=== PATIENT | male | born 1995 | race Two or more races ===

== ENCOUNTER 2024-05-14 11:16 | Inpatient (IN) | payer MEDICAID, OTHER ==
[~2024-05-14] VITALS: Ht 188 cm; Wt 89.0 kg
--- NOTE | 2024-05-14 11:34 | ED.PDOC ---
HPI (NEURO) HPI Comments 29 y.o male with PMHx of seizures, presents to the ED for an evaluation of seizure like activity today. Patient reports dad witnessed a seizure today. Dad is not currently present upon assessment to describe seizure, location or additional information. Patient is unable to recall event, states he had one last week and was seen at this facility. Patient states " I feel like I am going to have another seizure right now". Patient is on Keppra and has been compliant with taking it daily. Upcoming neurologist appointment on 05/16/24. Patient denies any pain or symptoms at this time. He admits to the use of marijuana and occasional alcohol intake. Chief Complaint: Seizure Time Seen by MD: 11:27 Primary Care Provider: Unsure Reviewed Notes: Nurses Notes, Medications, Allergies Information Source: Patient Mode of Arrival: Ambulatory Severity: Moderate Timing: Hours Duration: Since onset Seizure Location: Generalized Onset: At rest Symptoms: None Before: Normal During: LOC After: Normal Mentation History of: Seizure Disorder Modifying factors: Nothing Associated Signs and Symptoms: None Past Medical History PAST MEDICAL HISTORY: Seizures Surgical History: Denies all surgeries Family History Family History: Unknown Social History Smoker: Non-Smoker Alcohol: Occasionally Drugs: Marijuana Lives In: Home Constitutional: denies: chills, diaphoresis, fatigue, fever, malaise, sweats, weakness, others EENTM: denies: blurred vision, double vision, ear bleeding, ear discharge, ear drainage, ear pain, ear ringing, eye pain, eye redness, hearing loss, mouth pain, mouth swelling, nasal discharge, nose bleeding, nose congestion, nose pain, photophobia, tearing, throat pain, throat swelling, voice changes, others Respiratory: denies: cough, hemoptysis, orthopnea, SOB at rest, shortness of breath, SOB with excertion, stridor, wheezing, others Cardiovascular: denies: chest pain, dizzy spells, diaphoresis, Dyspnea on exertion, edema, irregular heart beat, left arm pain, lightheadedness, palpitations, PND, syncope, others Gastrointestinal: denies: abdomen distended, abdominal pain, blood streaked bowels, constipated, diarrhea, dysphagia, difficulty swallowing, hematemesis, melena, nausea, poor appetite, poor fluid intake, rectal bleeding, rectal pain, vomiting, others Genitourinary: denies: burning, dysuria, flank pain, frequency, hematuria, incontinence, penile discharge, penile sore, pain, testicle pain, testicle swelling, urgency, others Neurological: reports: seizure; denies: dizziness, fainting, headache, left sided numbness, left sided weakness, numbness, paresthesia, pre-existing deficit, right sided numbness, right sided weakness, speech problems, tingling, tremors, weakness, others Musculoskeletal: denies: back pain, gout, joint pain, joint swelling, muscle pain, muscle stiffness, neck pain, others Integumetry: denies: bruises, change in color, change in hair/nails, dryness, laceration, lesions, lumps, rash, wounds, others Allergic/Immunocompromised: denies: Difficulty Healing, Frequent Infections, Hives, Itching, others Hematologic/Lymphatic: denies: anemia, blood clots, easy bleeding, easy bruising, swollen glands, others Endocrine: denies: excessive hunger, excessive sweating, excessive thirst, excessive urination, flushing, intolerance to cold, intolerance to heat, unex plained weight gain, unexplained weight loss, others Psychiatric: denies: anxiety, bipolar disorder, depression, hopeless, panic disorder, schizophrenia, sleepless, suicidal, others All Other Systems: Reviewed and Negative Physical Exam General Appearance: Moderate Distress HEENT: Normal ENT Inspection, Pharynx Normal, TMs Normal Neck: Full Range of Motion, Non-Tender, Normal, Normal Inspection Respiratory: Chest Non-Tender, Lungs Clear, No Accessory Muscle Use, No Respiratory Distress, Normal Breath Sounds Cardiovascular: No Edema, No JVD, No Murmur, No Gallop, Normal Peripheral Pulses, Regular Rate/Rhythm Breast Exam: Deferred Gastrointestinal: No Organomegaly, Non Tender, No Pulsatile Mass, Normal Bowel Sounds, Soft Genitalia: Deferred Pelvic: Deferred Rectal: Deferred Extremities: No calf tenderness, Normal capillary refill, Normal inspection, Normal range of motion, Non-tender, No pedal edema Musculoskeletal : Apperance: Normal Neurologic: Disoriented Cerebellar Function: NOT DONE Reflexes: NOT DONE Skin: Dry, Normal Color, Warm Peripheral Pulses: 3+ Radial (R), 3+ Radial (L) Lymphatic: No Adenopathy Was a procedure done? Was a procedure done?: No Differential Diagnosis (SZ) Seizure: Psychogenic Seizure, Closed Head Injury, Syncope, Encephalopathy, Epilepsy-Break Through, Epilepsy-Status X-Ray, Labs, Meds, VS Vital Signs Date Time Temp Pulse Resp B/P (MAP) Pulse Ox O2 Delivery O2 Flow Rate FiO2 05/14/24 11:22 98.9 107 18 136/84 (101) 99 Lab Test 05/14/24 11:30 Range/Units White Blood Count Pending Red Blood Count Pending Hemoglobin Pending Hematocrit Pending Mean Corpuscular Volume Pending Mean Corpuscular Hemoglobin Pending Mean Corpuscular Hemoglobin Concent Pending Red Cell Distribution Width Pending Platelet Count Pending Mean Platelet Volume Pending Neutrophils (%) (Auto) Pending Lymphocytes (%) (Auto) Pending Monocytes (%) (Auto) Pending Basophils (%) (Auto) Pending Neutrophils # (Auto) Pending Lymphocytes # (Auto) Pending Monocytes # (Auto) Pending Sodium Level Pending Potassium Level Pending Chloride Level Pending Carbon Dioxide Level Pending Anion Gap Pending Blood Urea Nitrogen Pending Creatinine Pending Glomerular Filtration Rate Calc Pending BUN/Creatinine Ratio Pending Serum Glucose Pending Calcium Level Pending Patient slightly confused. History of seizure. Vitals stable. Answering all questions. Witnessed by father. Reviewed his previous visit. He is taking his Keppra. No physical injury. Explained to the patient. Time of 1ST Reevaluation: 11:30 Reevaluation 1ST: Unchanged Patient Education/Counseling: Diagnosis, Treatment, Prognosis Family Education/Counseling: No Family Present Departure 1 Departure Time of Disposition: 12:00 Impression: Primary Impression: Seizure Disposition: ADMITTED INPATIENT Admit to: Med Surg Condition: Guarded Critical Care Note Critical Care Time?: Yes (45 min-critical care time only) Stability Stability form required: No I personally scribed for JOLENE LOPEZ MD ([email or web address]) on 05/14/24 at 11:34. Electronically submitted by Shelly Cheney ([facility]). JOLENE LOPEZ MD May 14, 2024 11:34
[2024-05-14 12:04] LABS: Basophils # (auto) 0 10 ^3/uL (0-0.2); Basophils % (auto) 0.5 % (0.0-2.0); Eosinophils # (auto) 0 10 ^3/uL (0-0.8); Eosinophils % (auto) 0.8 % (0.0-7.0); Hematocrit 44.2 % (41.0-53.0); Hemoglobin 14.9 g/dL (13.5-17.5); Lymphocytes # (auto) 1.2 10 ^3/uL (0.4-5.4); Lymphocytes % (auto) 19.4 % (10.0-50.0); Mean Corpuscular Hemoglobin 32.6 pg (28.0-32.0); Mean Corpuscular Hgb Conc. 33.6 g/dL (32.0-36.0); Mean Corpuscular Volume 97.1 fL (80.0-100.0); Monocytes # (auto) 0.6 10 ^3/uL (0-1.3); Monocytes % (auto) 9.1 % (0.0-12.0); Neutrophils # (auto) 4.4 10 ^3/uL (1.6-8.6); Neutrophils % (auto) 70.2 % (37.0-80.0); Platelet Count (auto) 200 10^3/uL (140-450); Red Blood Cells 4.55 10^6/uL (4.5-5.90); Red Cell Distribution Width 13.5 % (11.8-14.3); White Blood Cell 6.2 10^3/uL (4.4-10.8)
[2024-05-14 12:13] LABS: Chloride 108 mmol/L (98-107); Potassium 4.2 mmol/L (3.5-5.1); Sodium 140 mmol/L (136-145)
[2024-05-14 12:14] LABS: Anion Gap 6 (5-15); Carbon Dioxide 26 mmol/L (20-31)
[2024-05-14 12:15] LABS: Calcium 9.4 mg/dL (8.7-10.4)
[2024-05-14 12:19] LABS: Glucose 108 mg/dL (74-106)
[2024-05-14 12:20] LABS: BUN/Creatinine Ratio 9.2 (10.0-20.0); Blood Urea Nitrogen 11 mg/dL (9-23)
[2024-05-14 16:11] VITALS: PULSE 64; RESP 16; O2SAT 100
[2024-05-14 19:21] VITALS: PULSE 70; RESP 15; O2SAT 97
[2024-05-14] MEDS ORDERED: LEVE500T3 PO (19:27)
[2024-05-14] MEDS ORDERED: ONDANSETRON HCL 4 MG/2 ML VIAL IV PRN (19:30)
[2024-05-14] MEDS ORDERED: NITROGLYCERIN 0.4 MG SL TAB SL PRN (19:30)
[2024-05-14] MEDS ORDERED: DOCUSATE SOD 100 MG CAP PO PRN (19:30)
[2024-05-14] MEDS ORDERED: MORPHINE SULFATE INJ 2 MG/ml SYRG IV PRN (19:30)
[2024-05-14] MEDS ORDERED: ACETAMINOPHEN 325 MG TAB PO PRN (19:30)
--- NOTE | 2024-05-14 19:35 | DVHHP2 ---
History of Present Illness Reason for Visit: Seizure History of Present Illness Guzman Lowry is a 29-year-old male with past medical history of seizures, who came in due to having a seizure at home. Patient states that he missed a dose of his seizure medication yesterday, and when he misses a dose he has seizures. He states that he was visiting his dad and had a seizure while at his house. He states he can feel when they are going to happen and that he felt like it was going to happen again so he had his dad bring him to the hospital. 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 Past Surgical History: None Family History: None Smoke: No ALCOHOL: rare Drugs: Marijuana Lives: Homeless Domestic Violence: Neg Review of Systems Constitutional: No: Fever, Chills, Sweats, Weakness, Malaise, Other Eyes: No: Pain, Vision change, Conjunctivae inflammation, Eyelid inflammation, Other, Redness ENT: No: Ear pain, Ear discharge, Nose pain, Nose discharge, Nose congestion, Mouth pain, Mouth swelling, Throat pain, Throat swelling, Other Respiratory: No: Cough, Dry, Shortness of breath, SOB with excertion, Wheezing, Hemoptysis, Pleuritic Pain, Sputum, Wheezing, Other Cardiovascular: No: Chest Pain, Palpitations, Orthopnea, Paroxysmal Noc. Dyspnea, Edema, Lt Headedness, Other Gastrointestinal: No: Nausea, Vomiting, Abdominal Pain, Diarrhea, Constipation, Melena, Hematochezia, Other Genitourinary: No Dysuria, No Frequency, No Incontinence, No Hematuria, No Retention, No Other Musculoskeletal: No: other, neck pain, shoulder pain, arm pain, back pain, hand pain, leg pain, foot pain Skin: No: Rash, Lesions, Jaundice, Bruising, Other Neurological: Seizures; No: Weakness, Numbness, Incoordination, Change in speech, Confusion, Other Allergies: Coded Allergies: NO KNOWN ALLERGIES (Unverified , 05/14/24) Exam Vital Signs Vital Signs Date Time Temp Pulse Resp B/P (MAP) Pulse Ox O2 Delivery O2 Flow Rate FiO2 05/14/24 18:15 69 18 124/75 (91) 98 05/14/24 16:11 Room Air* 0 21 05/14/24 14:22 98.8 98.8 General Appearance: Alert, Oriented X3, Cooperative, mild distress HEENT: Atraumatic, PERRLA Respiratory: Clear to auscultation, Normal air movement Cardiovascular: Regular rate, Normal S1, Normal S2, No murmurs Abdominal: Normal bowel sounds, Soft, No tenderness Extremities: No clubbing, No cyanosis, No edema, Normal pulses Skin: No rashes, No breakdown, No significant lesion Neuro: Normal gait, Normal speech, Strength at 5/5 X4 ext Psych/Mental Status: Mental status NL, Mood NL Labs/Xrays Labs Test 05/14/24 11:30 Range/Units White Blood Count 6.2 4.4-10.8 10^3/uL Red Blood Count 4.55 4.5-5.90 10^6/uL Hemoglobin 14.9 13.5-17.5 g/dL Hematocrit 44.2 41.0-53.0 % Mean Corpuscular Volume 97.1 80.0-100.0 fL Mean Corpuscular Hemoglobin 32.6 H 28.0-32.0 pg Mean Corpuscular Hemoglobin Concent 33.6 32.0-36.0 g/dL Red Cell Distribution Width 13.5 11.8-14.3 % Platelet Count 200 140-450 10^3/uL Mean Platelet Volume 8.0 6.9-10.8 fL Neutrophils (%) (Auto) 70.2 37.0-80.0 % Lymphocytes (%) (Auto) 19.4 10.0-50.0 % Monocytes (%) (Auto) 9.1 0.0-12.0 % Eosinophils (%) (Auto) 0.8 0.0-7.0 % Basophils (%) (Auto) 0.5 0.0-2.0 % Neutrophils # (Auto) 4.4 1.6-8.6 10 ^3/uL Lymphocytes # (Auto) 1.2 0.4-5.4 10 ^3/uL Monocytes # (Auto) 0.6 0-1.3 10 ^3/uL Eosinophils # (Auto) 0 0-0.8 10 ^3/uL Basophils # (Auto) 0 0-0.2 10 ^3/uL Nucleated Red Blood Cells 0.0 % Sodium Level 140 136-145 mmol/L Potassium Level 4.2 3.5-5.1 mmol/L Chloride Level 108 H 98-107 mmol/L Carbon Dioxide Level 26 20-31 mmol/L Anion Gap 6 5-15 Blood Urea Nitrogen 11 9-23 mg/dL Creatinine 1.20 0.700-1.30 mg/dL Glomerular Filtration Rate Calc 85 >90 mL/min BUN/Creatinine Ratio 9.2 L 10.0-20.0 Serum Glucose 108 H 74-106 mg/dL Calcium Level 9.4 8.7-10.4 mg/dL Assessment/Plan Assessment/Plan Assessment: Seizure, Plan: Admit to Tele, IV seizure medications, Continue home seizure medication, IV hydration, Seizure precautions, Social service consult, Consider neurology consult if patient continues to have seizures, PRN Ativan for seizures, Plan discussed with: Patient My Orders Orders - ANUPAM GILLIS Procedure Category Date Status Time Levetiracetam Ivpb PHA 05/14/24 Transmitted Keppra 19:30 Admit ADMIT 05/14/24 Transmitted 19:26 Code Status CODE 05/14/24 Transmitted 19:26 Hydrocodone-Acet [facility] 05/14/24 Transmitted 5/325mg Tab ([place] 19:30 Ondansetron Hcl [facility] 05/14/24 Transmitted (Zofran) 19:30 Docusate Sodium [facility] 05/14/24 Transmitted Capsule (Colace 19:30 Complete Blood Count LAB 05/15/24 Verified 04:00 Comprehensive LAB 05/15/24 Verified Metabolic Panel 04:00 Condition: Serious [facility] 05/14/24 Transmitted 19:26 Acetaminophen Tablet [facility] 05/14/24 Transmitted (Tylenol Tablet) 19:30 Nitroglycerin [facility] 05/14/24 Transmitted Sublingual (Ntrostat 19:30 Morphine Sulfate [facility] 05/14/24 Transmitted Injection 19:30 Stat Ekg For Chest [facility] 05/14/24 Transmitted Pain 19:26 Notify Md Of Changes [facility] 05/14/24 Transmitted From Base 19:26 Centrifugal Chiller Technician For [facility] 05/14/24 Transmitted 24 Hours 19:26 Emergency Dysrhythmia [facility] 05/14/24 Transmitted Protocol 19:26 Rhythm Strips Once [facility] 05/14/24 Transmitted Every Shift 19:26 Oxygen By Nasal RT 05/14/24 Transmitted Cannula 19:26 Seizure Precautions [facility] 05/14/[address] 19:26 Levetiracetam Tablet [facility] 05/14/24 Transmitted (Keppra Tablet) 22:00 Date of Service: May 14, 2024 Billing Provider: ANUPAM GILLIS Common Visit Codes: [id number] INP/OBS CARE (MOD) ANUPAM GILLIS May 14, 2024 19:35
[2024-05-14] MEDS: levETIRAcetam 500 mg/100ml 100 ML IV ONE (19:38)
[2024-05-14] MEDS: SODIUM CHLORIDE 0.9% 1,000 ML IV ONE (19:38)
[2024-05-14] MEDS ORDERED: LORazepam 2MG/ML-1ML VIAL IV PRN (19:45)
[2024-05-14] MEDS: HYDROcodone-ACET 5/325MG TAB PO PRN (19:47)
[2024-05-14 21:40] VITALS: BP 119/71; PULSE 68; RESP 16; TEMP 98.1; O2SAT 98
[2024-05-14] MEDS: levETIRAcetam 500 MG TAB PO SCH (22:07)
[2024-05-15] VITALS (8 sets, daily range): BP systolic 92–127; BP diastolic 56–84; PULSE 60–94; RESP 16–18; TEMP 97.4–99.4; O2SAT 92–99
[2024-05-15 06:17] LABS: Basophils # (auto) 0 10 ^3/uL (0-0.2); Basophils % (auto) 0.3 % (0.0-2.0); Eosinophils # (auto) 0.1 10 ^3/uL (0-0.8); Eosinophils % (auto) 1.7 % (0.0-7.0); Hematocrit 40.9 % (41.0-53.0); Hemoglobin 13.9 g/dL (13.5-17.5); Lymphocytes # (auto) 1.9 10 ^3/uL (0.4-5.4); Lymphocytes % (auto) 28.9 % (10.0-50.0); Mean Corpuscular Hemoglobin 33.3 pg (28.0-32.0); Monocytes # (auto) 0.5 10 ^3/uL (0-1.3); Monocytes % (auto) 7.6 % (0.0-12.0); Neutrophils % (auto) 61.5 % (37.0-80.0); Nucleated Red Blood Cells % 0.1 %; Platelet Count (auto) 186 10^3/uL (140-450); Red Blood Cells 4.18 10^6/uL (4.5-5.90); Red Cell Distribution Width 13.5 % (11.8-14.3); White Blood Cell 6.5 10^3/uL (4.4-10.8)
[2024-05-15 06:39] LABS: Alanine Aminotransferase 16 U/L (7-40); Albumin 3.8 g/dL (3.2-4.8); Alkaline Phosphatase 32 U/L (46-116); Anion Gap 8 (5-15); Aspartate Aminotransferase 13 U/L (13-40); BUN/Creatinine Ratio 7.5 (10.0-20.0); Bilirubin, Total 0.3 mg/dL (0.2-1.0); Blood Urea Nitrogen 9 mg/dL (9-23); Calcium 9.1 mg/dL (8.7-10.4); Carbon Dioxide 26 mmol/L (20-31); Chloride 108 mmol/L (98-107); Glucose 111 mg/dL (74-106); Potassium 3.8 mmol/L (3.5-5.1); Sodium 142 mmol/L (136-145); Total Protein 5.5 g/dL (5.7-8.2)
[2024-05-15] MEDS: INFLUENZA TRIVALENT 2024-2025 0.5 ML INJ IM ONE (09:52)
[2024-05-15 13:33] LABS: Urine Bacteria None Seen /hpf (None Seen)
[2024-05-15 13:47] LABS: Urine Blood Negative /uL (Negative); Urine Clarity Clear (Clear); Urine Color Straw (Yellow); Urine Protein, UAD Negative (Negative); Urine Urobilinogen Normal (Negative); Urine WBC <1 /hpf (0 - 3); Urine pH 7.5 (5.0-9.0)
[2024-05-15 13:52] LABS: Amphetamine Screen, Urine Neg (NEGATIVE); Barbiturate Scree,Urine Neg (NEGATIVE); Benzodiazephine Screen, Urine Neg (NEGATIVE)
[2024-05-15 13:53] LABS: Cannabinoid Screen, Urine Pos (NEGATIVE); Cocaine Screen, Urine Neg (NEGATIVE); Opiate Scree,Urine Neg (NEGATIVE); Phencyclidine Screen, Urine Neg (NEGATIVE)
--- NOTE | 2024-05-15 15:36 | DVHPNRES ---
Progress Note Date Seen: May 15, 2024 Resident Creating Document: SHIRA CHUNG RESIDENT Medical Necessity Reason Pt with a Central, PICC or Fol: No Subjective Review of Systems Patient is a 29-year-old male with past medical history of seizure diagnosed in 2021, who came in after experiencing a pre-seizure aura. According to the patient, on Thursday morning 05/14/2024, he started feeling lightheaded, confused with an unsteady gait, patient notes this is the aura he feels usually before he experiences a seizure. Shortly afterwards, patient had his father bring him to the hospital. Per patient, he does not remember having a seizure, only remembers having the aura that prompted this visit to the hospital. Patient notes that he missed his seizure medication on Thursday night 05/13/2024. He reports having his last seizure on 05/08/2024. Patient also notes that previously she used to live in [facility] and he has recently moved to the [facility] area where his father lives. Past surgical history: Denies Home medications: Keppra 500 mg b.i.d. Past Hospitalization: In April 2024 for similar symptoms Social & Personal history: Patient is currently living with his father, however, does not want to return to living with him. Patient is currently unemployed. Denies using tobacco, drinks alcohol occasionally, last drink was on 05/12/2024 x2 beers. Uses marijuana twice a week. Denies using any other drugs Allergies: Denies Patient seen and examined at bedside. Patient is alert and oriented to time, place person and responding to all questions. General: Reports feeling fatigued and fevers Eyes: No Pain, No Vision change, No Conjunctivae inflammation, No Eyelid inflammation, No Other, No Redness ENT: No Ear pain, No Ear discharge, No Nose pain, No Nose discharge, No Nose congestion, No Mouth pain, No Mouth swelling, No Throat pain, No Throat swelling, No Other Cardiovascular: No Chest Pain, No Palpitations, No Orthopnea, No Paroxysmal No Dyspnea, No Edema, No Lt Headedness, No Other Respiratory: No Cough, No Dry, No Shortness of breath, SOB with exertion, No Wheezing, No Hemoptysis, No Pleuritic Pain, No Sputum, No Other Gastrointestinal: No Nausea, No Vomiting, No Abdominal Pain, No Diarrhea, No Constipation, No Melena, No Hematochezia, No Other Genitourinary: No Dysuria, No Frequency, No Incontinence, No Hematuria, No Retention, No Other Musculoskeletal: No other, No neck pain, No shoulder pain, No arm pain, No back pain, No hand pain, No leg pain, No foot pain Skin: No Rash, No Lesions, No Jaundice, No Bruising, No Other Psychiatric: Reports feeling more depressed and anxious than usual in the past 2 weeks, has had suicidal ideation, but no plan. Objective vital signs Vital Sign Date Time Temp Pulse Resp B/P (MAP) Pulse Ox O2 Delivery O2 Flow Rate FiO2 05/15/24 13:00 98.9 72 16 127/84 (98) 98 98.9 05/15/24 08:00 Room Air* 0 21 Total Intake and Output 05/14/24 05/14/24 05/15/24 15:00 23:00 07:00 Intake Total 100 ml 600 ml Balance 100 ml 600 ml medications Current Medications Medications Dose Ordered Sig/Annamaria Route Start Time Stop Time Status Last Admin Dose Admin Acetaminophen/ Hydrocodone Bitart 1 tab Q4HP PRN PO 05/14/24 19:30 05/14/24 19:47 1 TAB Ondansetron HCl 4 mg Q4HP PRN IV 05/14/24 19:30 Docusate Sodium 100 mg BIDPRN PRN PO 05/14/24 19:30 Acetaminophen 650 mg Q6HP PRN PO 05/14/24 19:30 Nitroglycerin 0.4 mg Q5MINP PRN SL 05/14/24 19:30 Morphine Sulfate 2 mg Q30M PRN IV 05/14/24 19:30 Levetiracetam 750 mg BID PO 05/14/24 22:00 05/15/24 09:50 750 MG Lorazepam 1 mg Q5MINP PRN IV 05/14/24 19:45 Examination General Appearance: Cooperative. Well developed. Well nourished. NAD Head Exam: Normal inspection Neck Exam: Normal inspection. Non-tender. Normal alignment Pulmonary/Respiratory: Chest non-tender. Clear bilateral breath sounds, no crackles, no wheezing. Cardiovascular/Chest: Regular rate and rhythm. No murmurs. No JVD. Peripheral Pulses: 2+ Radial (R). 2+ Radial (L). 2+ Pedal (R). 2+ Pedal (L) Abdominal Exam: Normal bowel sounds. Soft. normal abdomen, no visible veins, Nontender. No hepatosplenomegaly. No masses Ankle Exam: Negative ankle edema Lower extremities: Negative lower extremity edema Neuro/Mental Status: A&O x4. Coherent. Thoughts/Psych: Normal thought pattern. Appropriate mood and affect. Good judgement and insight Skin Exam: Normal inspection. Normal color. Warm. Dry laboratory and microbiology Laboratory Tests 05/15/24 04:49 Test 05/15/24 04:49 Range/Units Serum Glucose 111 H 74-106 mg/dL Microbiology Date/Time Source Procedure Growth Status 05/14/24 22:20 Nose MRSA Screen - Final Complete Labs and/or images reviewed: Labs reviewed by me, Image(s) reviewed by me Problem List/Assessment/Plan Problem List/Assessment/Plan Seizure disorder ? Breakthrough seizure History of a closed head injury in the past - IV NS 1 L bolus given - IV Keppra 500 mg once - p.o. Keppra 750 mg b.i.d. - IV lorazepam 1 mg Q 5 minutes as needed for seizures - UDS positive for cannabinoids - discussed with patient in detail about seizure triggers and to avoid them as much as possible Medication noncompliance - counseled patient extensively on the importance of adhering to prescribed medication in order to prevent breakthrough seizure Major depressive disorder vs anxiety can not be ruled out - ordered psych consult - no suicide ideation/plan Marijuana use disorder - counseled on cessation for 18 minutes Homelessness - consulted social worker psychiatric to provide patient resources DVT prophylaxis: SCD Goals of care: Full code, discussed for 20 minutes on 05/15/24 Plan discussed with patient Plan discussed with Dr. Cortez Plan discussed with: Patient, Other (RN) My Orders My Orders Orders - SHIRA CHUNG RESIDENT Procedure Category Date Status Time Folate (Folic Acid) LAB 05/15/24 In Process 07:47 Vitamin D, 25-Hydroxy LAB 05/15/24 In Process 07:47 Vitamin B12 LAB 05/15/24 In Process 07:47 *Tele Psych Consult CONS 05/15/24 Transmitted 13:25 Addendum Addendum Addendum I was physically present for the brooks portions of the service provided to patient by THE RESIDENT. I have reviewed the documentation, discussed the case with resident and agree with the resident's documentation except as noted. Also the patient's clinical case was discussed with the patient's nurse. This medical document was created using an electronic medical record system with computerized dictation system. Although this document has been carefully reviewed, there might still be some phonetic and typographical errors. These areas are purely typographical due to imperfections of the software programs, and do not reflect any compromise in the patient's medical care. Late signature. Date of Service: May 15, 2024 Billing Provider: LEONORA CORTEZ MD Common Visit Codes: [id number] INP/OBS CARE(HIGH) Secondary Visit Codes: [id number] CHNG SMOKING >10MIN (Counseled marijuana use cessation for 18 minutes), [id number] CARE PLAN 30 MINUTES (20 minutes) SHIRA CHUNG May 15, 2024 15:36 LEONORA CORTEZ MD May 16, 2024 04:50
--- NOTE | 2024-05-15 15:58 | DVHINCON2 ---
Date of service: May 15, [address] Golden Nowak Reason for Consultation Medication management and disposition. History of Present Illness Chief complaint: "Seizure". History of present illness: This is a 29-year-old male who was seen for evaluation via telepsychiatry. Patient reported that he has been feeling depressed. Patient reported having trouble sleeping, appetite decreased and he feels hopeless and worthless. He reported having suicidal ideations stating "sometimes I do". He denied any homicidal ideation. He reported some vague hallucination but was unable to elaborate the details. He reported feeling paranoid. As per nursing staff patient had endorsed having suicidal ideation and paranoia. Past psychiatric history: Patient denied any previous inpatient psychiatric hospitalization. Patient reported that he has been diagnosed with depression. He denied any suicide attempts in the past. Past Medical History As per history and physical. Past Surgical History As per history and physical. Family History: Patient reports no known family medical history. Family History He denied any family history of any psychiatric illness. Social History Patient is single and has one daughter. 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 Substance use: Patient reported occasional use of marijuana and alcohol. Allergies: Coded Allergies: NO KNOWN ALLERGIES (Unverified , 05/14/24) Home Meds Reported Medications Levetiracetam (Levetiracetam) 500 Mg Tab, 1.5 TAB PO BID 05/14/24 Current Medications Current Medications Medications (Trade) Dose Ordered Sig/Annamaria Route PRN Reason Start Time Stop Time Status Last Admin Acetaminophen/ Hydrocodone Bitart ([place] 5/325MG Tab) 1 tab Q4HP PRN PO MODERATE PAIN (4-6 PAIN SCALE) 05/14/24 19:30 05/14/24 19:47 Ondansetron HCl (Zofran) 4 mg Q4HP PRN IV NAUSEA / VOMITING 05/14/24 19:30 Docusate Sodium (Colace Capsule) 100 mg BIDPRN PRN PO FOR CONSTIPATION 05/14/24 19:30 Acetaminophen (Tylenol Tablet) 650 mg Q6HP PRN PO PAIN SCALE 1-3 OR TEMP>100.4 05/14/24 19:30 Nitroglycerin (Ntrostat Sublingual) 0.4 mg Q5MINP PRN SL FOR CHEST PAIN 05/14/24 19:30 Morphine Sulfate 2 mg Q30M PRN IV FOR CHEST PAIN 05/14/24 19:30 Levetiracetam (Keppra Tablet) 750 mg BID PO 05/14/24 22:00 05/15/24 09:50 Lorazepam (Ativan Inj) 1 mg Q5MINP PRN IV SEIZURES 05/14/24 19:45 Review of Systems Review of systems is negative except HPI. Vital Signs Vital Signs Date Time Temp Pulse Resp B/P (MAP) Pulse Ox O2 Delivery O2 Flow Rate FiO2 05/15/24 13:00 98.9 72 16 127/84 (98) 98 98.9 05/15/24 08:00 Room Air* 0 21 Physical Exam Mental status examination: This is a 29 year male who appears to be of his stated age. His grooming is marginal. His eye contact is good. His speech is regular rate and rhythm. He describes mood as "it is better" and his affect is restricted. He reported having intermittent suicidal ideation. He denied any homicidal ideation. He reported some vague hallucination. His thought process is circumstantial and paranoid. He is oriented to time, place and person. His attention and concentration slightly impaired. His memory and language intact. His judgment and insight is limited. His impulse control is limited. His fund of knowledge impaired. Labs/Diagnostic Data Labs Test 05/15/24 13:31 05/15/24 04:49 Range/Units Urine Color Straw Yellow Urine Clarity Clear Clear Urine pH 7.5 5.0-9.0 Urine Specific [place] 1.010 1.001-1.035 Urine Protein Negative Negative Urine Ketones Negative Negative Urine Blood Negative Negative /uL Urine Nitrite Negative Negative Urine Bilirubin Negative Negative Urine Urobilinogen Normal Negative mg/dL Urine Leukocyte Esterase Negative Negative /uL Urine RBC None seen 0 - 3 /hpf Urine WBC <1 0 - 3 /hpf Urine Squamous Epithelial Cells None seen <5 /hpf Urine Bacteria None seen None Seen /hpf Urine Glucose Normal Normal mg/dL Urine Opiates Screen Neg NEGATIVE Urine Fentanyl Screen Neg NEGATIVE Urine Barbiturates Screen Neg NEGATIVE Urine Phencyclidine Screen Neg NEGATIVE Urine Amphetamines Screen Neg NEGATIVE Urine Benzodiazepines Screen Neg NEGATIVE Urine Cocaine Screen Neg NEGATIVE Urine Cannabinoids Screen Pos NEGATIVE White Blood Count 6.5 4.4-10.8 10^3/uL Red Blood Count 4.18 L 4.5-5.90 10^6/uL Hemoglobin 13.9 13.5-17.5 g/dL Hematocrit 40.9 L 41.0-53.0 % Mean Corpuscular Volume 98.0 80.0-100.0 fL Mean Corpuscular Hemoglobin 33.3 H 28.0-32.0 pg Mean Corpuscular Hemoglobin Concent 34.0 32.0-36.0 g/dL Red Cell Distribution Width 13.5 11.8-14.3 % Platelet Count 186 140-450 10^3/uL Mean Platelet Volume 8.3 6.9-10.8 fL Neutrophils (%) (Auto) 61.5 37.0-80.0 % Lymphocytes (%) (Auto) 28.9 10.0-50.0 % Monocytes (%) (Auto) 7.6 0.0-12.0 % Eosinophils (%) (Auto) 1.7 0.0-7.0 % Basophils (%) (Auto) 0.3 0.0-2.0 % Neutrophils # (Auto) 4.0 1.6-8.6 10 ^3/uL Lymphocytes # (Auto) 1.9 0.4-5.4 10 ^3/uL Monocytes # (Auto) 0.5 0-1.3 10 ^3/uL Eosinophils # (Auto) 0.1 0-0.8 10 ^3/uL Basophils # (Auto) 0 0-0.2 10 ^3/uL Nucleated Red Blood Cells 0.1 % Sodium Level 142 136-145 mmol/L Potassium Level 3.8 3.5-5.1 mmol/L Chloride Level 108 H 98-107 mmol/L Carbon Dioxide Level 26 20-31 mmol/L Anion Gap 8 5-15 Blood Urea Nitrogen 9 9-23 mg/dL Creatinine 1.20 0.700-1.30 mg/dL Glomerular Filtration Rate Calc 85 >90 mL/min BUN/Creatinine Ratio 7.5 L 10.0-20.0 Serum Glucose 111 H 74-106 mg/dL Calcium Level 9.1 8.7-10.4 mg/dL Total Bilirubin 0.3 0.2-1.0 mg/dL Aspartate Amino Transferase (AST) 13 13-40 U/L Alanine Aminotransferase (ALT) 16 7-40 U/L Alkaline Phosphatase 32 L 46-116 U/L Total Protein 5.5 L 5.7-8.2 g/dL Albumin 3.8 3.2-4.8 g/dL Thyroid Stimulating Hormone (TSH) 2.92 0.55-4.78 uIU/mL Microbiology Date/Time Source Procedure Growth Status 05/14/24 22:20 Nose MRSA Screen - Final Complete Assessment Patient with a 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 Plan/Recommendation I will recommend 5150 hold for danger to self and transferred to inpatient psychiatric level of care. I will start him on Prozac 20 mg daily and Seroquel 50 mg HS. Care was coordinated with the patient and his RN. Plan discussed with: Patient, Other (RN) MADAN FRANCO MD May 15, 2024 15:58
[2024-05-15] MEDS: QUEtiapine FUMARATE 25 MG TAB PO SCH (22:44)
[2024-05-16] VITALS (7 sets, daily range): BP systolic 113–143; BP diastolic 68–85; PULSE 63–81; RESP 16–18; TEMP 97.9–98.3; O2SAT 95–99
[2024-05-16 05:44] LABS: Anion Gap 5 (5-15); Carbon Dioxide 26 mmol/L (20-31); Chloride 110 mmol/L (98-107); Potassium 3.7 mmol/L (3.5-5.1); Sodium 141 mmol/L (136-145)
[2024-05-16 05:46] LABS: Calcium 9.6 mg/dL (8.7-10.4)
[2024-05-16 05:50] LABS: Blood Urea Nitrogen 7 mg/dL (9-23); Glucose 90 mg/dL (74-106)
[2024-05-16] MEDS: FLUoxetine HCL 20 MG CAP PO SCH (10:12)
[2024-05-16 11:08] LABS: Folate (Folic Acid) 14.43 ng/mL (>5.38)
--- NOTE | 2024-05-16 12:34 | DVHPNRES ---
Progress Note Date Seen: May 16, 2024 Resident Creating Document: SHIRA CHUNG RESIDENT Medical Necessity Reason Pt with a Central, PICC or Fol: No Subjective Review of Systems Patient is a 29-year-old male with past medical history of seizure diagnosed in 2021, who came in after experiencing a pre-seizure aura. According to the patient, on Thursday morning 05/14/2024, he started feeling lightheaded, confused with an unsteady gait, patient notes this is the aura he feels usually before he experiences a seizure. Shortly afterwards, patient had his father bring him to the hospital. Per patient, he does not remember having a seizure, only remembers having the aura that prompted this visit to the hospital. Patient notes that he missed his seizure medication on Thursday night 05/13/2024. He reports having his last seizure on 05/08/2024. Patient also notes that previously she used to live in [facility] and he has recently moved to the [facility] area where his father lives. Past surgical history: Denies Home medications: Keppra 500 mg b.i.d. Past Hospitalization: In April 2024 for similar symptoms Social & Personal history: Patient is currently living with his father, however, does not want to return to living with him. Patient is currently unemployed. Denies using tobacco, drinks alcohol occasionally, last drink was on 05/12/2024 x2 beers. Uses marijuana twice a week. Denies using any other drugs Allergies: Denies Patient seen and examined at bedside. Patient is alert and oriented to time, place person and responding to all questions. Reports feeling much better today. Denies any active suicidal ideations today. Objective vital signs Vital Sign Date Time Temp Pulse Resp B/P (MAP) Pulse Ox O2 Delivery O2 Flow Rate FiO2 05/16/24 05:00 63 17 114/68 (83) 98 05/15/24 21:00 99.4 99.4 05/15/24 20:00 Room Air* 0 21 Total Intake and Output 05/15/24 05/15/24 05/16/24 15:00 23:00 07:00 Intake Total 1370 ml 500 ml Output Total 1100 ml Balance 270 ml 500 ml medications Current Medications Medications Dose Ordered Sig/Annamaria Route Start Time Stop Time Status Last Admin Dose Admin Acetaminophen/ Hydrocodone Bitart 1 tab Q4HP PRN PO 05/14/24 19:30 05/14/24 19:47 1 TAB Ondansetron HCl 4 mg Q4HP PRN IV 05/14/24 19:30 Docusate Sodium 100 mg BIDPRN PRN PO 05/14/24 19:30 Acetaminophen 650 mg Q6HP PRN PO 05/14/24 19:30 Nitroglycerin 0.4 mg Q5MINP PRN SL 05/14/24 19:30 Morphine Sulfate 2 mg Q30M PRN IV 05/14/24 19:30 Levetiracetam 750 mg BID PO 05/14/24 22:00 05/16/24 10:12 750 MG Lorazepam 1 mg Q5MINP PRN IV 05/14/24 19:45 Fluoxetine HCl 20 mg DAILY PO 05/16/24 10:00 05/16/24 10:12 20 MG Quetiapine Fumarate 50 mg HS PO 05/15/24 22:00 05/15/24 22:44 50 MG Examination General Appearance: Cooperative. Well developed. Well nourished. NAD Head Exam: Normal inspection Neck Exam: Normal inspection. Non-tender. Normal alignment Pulmonary/Respiratory: Chest non-tender. Clear bilateral breath sounds, no crackles, no wheezing. Cardiovascular/Chest: Regular rate and rhythm. No murmurs. No JVD. Peripheral Pulses: 2+ Radial (R). 2+ Radial (L). 2+ Pedal (R). 2+ Pedal (L) Abdominal Exam: Normal bowel sounds. Soft. normal abdomen, no visible veins, Nontender. No hepatosplenomegaly. No masses Ankle Exam: Negative ankle edema Lower extremities: Negative lower extremity edema Neuro/Mental Status: A&O x4. Coherent. Thoughts/Psych: Normal thought pattern. Appropriate mood and affect. Good judgement and insight Skin Exam: Normal inspection. Normal color. Warm. Dry Psychiatric: Reports feeling depressed, denying any active suicidal ideation, intent or plan today. laboratory and microbiology Laboratory Tests 05/16/24 04:46 05/15/24 04:49 Test 05/16/24 04:46 Range/Units Serum Glucose 90 74-106 mg/dL Microbiology Date/Time Source Procedure Growth Status 05/14/24 22:20 Nose MRSA Screen - Final Complete Problem List/Assessment/Plan Problem List/Assessment/Plan Seizure disorder ? Breakthrough seizure History of a closed head injury in the past - IV NS 1 L bolus given - IV Keppra 500 mg once - p.o. Keppra 750 mg b.i.d. - IV lorazepam 1 mg Q 5 minutes as needed for seizures - UDS positive for cannabinoids - discussed with patient in detail about seizure triggers and to avoid them as much as possible Vitamin-D deficiency - replaced 86962 units of vitamin-D Vitamin B12 deficiency - 1000 mcg IM once vitamin B12 Medication noncompliance - counseled patient extensively on the importance of adhering to prescribed medication in order to prevent breakthrough seizure Major depressive disorder, recurrent and severe - ordered psych consult - fluoxetine 20 mg p.o. daily - quetiapine 50 mg p.o. daily - repeat psych evaluation ordered Homelessness - consulted social problems specialist to provide patient resources DVT prophylaxis: SCD Goals of care: Full code, discussed for >16 minutes on 05/15/24 Plan discussed with patient Plan discussed with Dr. Marrero Plan discussed with: Patient, Other (Father, RN) My Orders My Orders Orders - SHIRA CHUNG Procedure Category Date Status Time *Tele Psych Consult CONS 05/15/24 Transmitted 13:25 * [employer] CONS 05/15/24 Transmitted Consult Discontinue Tele REVA 05/16/24 In Process 06:33 Transfer Orders XFER 05/16/24 Transmitted 06:33 *Tele Psych Consult CONS 05/16/24 Transmitted 12:29 Date of Service: May 16, 2024 Billing Provider: SHANELL MARRERO MD Common Visit Codes: [id number] INP/OBS CARE(HIGH) SHIRA CHUNG May 16, 2024 12:33 SHANELL MARRERO MD May 16, 2024 13:18
--- NOTE | 2024-05-16 15:23 | TELE.CONS ---
05/16/24 1510 The patient was seen and evaluated at [facility] via telepsychiatry platform. 29yr old male was seen by psychiatrist Dr Sheridan on 05/15 and diagnosed with major depressive disorder and started on prozac 20mg qam and seroquel 50mg qhs. He stated he feels much better after starting his medications. He denied any adverse effects on seroquel and prozac. He said the medication is helping "with my nerves" and no longer has suicidal ideation. He stated he listens to jazz to calm down and takes his mind off his own situation. He plans to continue on his medication and feels comfortable being discharged. He realizes certain things trigger the seizures which then affects his memory. He denied having SI/HI/AVH. MSE: Alert, oriented male lying in bed cooperative and forthcoming speech-regular, rate, rhythm and volume no psychomotor abnormality Mood-"much better, I'm staying positive" Affect-pleasant, calm, euthymic, congruent Tht process-linear and goal directed Tht Content-Denied having suicidal ideation, plan or intent. denied HI/AVH Insight-fair Judgment-fair Impulse control-intact Diagnosis: MAJOR DEPRESSIVE DISORDER Assessment: This 29 yr old male appears to suffer from depression and has a seizure disorder but is no longer suicidal and does not desire psychiatric hospitalization. He does not meet criteria for involuntary hospitalization. He m ay benefit from continuing on prozac and seroquel and following up with his outpatient psychiatrist. Plan: 1. The patient is a low risk for self harm and may be managed as an outpatient. 2. Legal-discontinue involuntary hold and discharge home. 3. Medications- continue outpatient medications. 4. Follow up with outpatient mental health for medication management and therapy. 5. Case discussed with POLLY Garcia. 6. Please contact psychiatry if further follow up or reevaluation is desired. Yes GILA KEYES MD May 16, 2024 15:05
[2024-05-16] MEDS: ERGOCALCIFEROL 50,000 UNIT(1.25MG) CAP PO SCH (18:38)
[2024-05-16] MEDS: CYANOCOBALAMIN (B-12) 1000 MCG/1 ML VIAL IM ONE (18:40)
[2024-05-17 01:00] VITALS: BP 131/83; PULSE 73; RESP 18; TEMP 98.3; O2SAT 99
[2024-05-17 05:00] VITALS: BP 128/68; PULSE 69; RESP 17; TEMP 98.6; O2SAT 98
[2024-05-17 08:00] VITALS: PULSE 76; RESP 20; O2SAT 95
[2024-05-17 09:13] VITALS: BP 118/69; PULSE 76; RESP 20; TEMP 98.6; O2SAT 95
[2024-05-17 13:00] VITALS: BP 118/71; PULSE 82; RESP 20; TEMP 98.8; O2SAT 97
[2024-05-17] MEDS ORDERED: QUET50TA27 PO (14:21)
[2024-05-17] MEDS ORDERED: FLUO1TAB14 PO (14:21)
--- NOTE | 2024-05-17 14:22 | DVHDSRES ---
Discharge Summary Date of Admission Resident Creating Document: SHIRA CHUNG RESIDENT May 14, 2024 at 19:26 Date of Discharge: May 17, 2024 Labs/Diagnostic Data: Laboratory Results Test 05/16/24 04:46 05/15/24 13:31 05/15/24 04:49 Sodium Level 141 mmol/L (136-145) Potassium Level 3.7 mmol/L (3.5-5.1) Chloride Level 110 mmol/L (98-107) Carbon Dioxide Level 26 mmol/L (20-31) Anion Gap 5 (5-15) Blood Urea Nitrogen 7 mg/dL (9-23) Creatinine 1.16 mg/dL (0.700-1.30) Glomerular Filtration Rate Calc 89 mL/min (>90) BUN/Creatinine Ratio 6.0 (10.0-20.0) Serum Glucose 90 mg/dL (74-106) Calcium Level 9.6 mg/dL (8.7-10.4) Urine Color Straw (Yellow) Urine Clarity Clear (Clear) Urine pH 7.5 (5.0-9.0) Urine Specific [place] 1.010 (1.001-1.035) Urine Protein Negative (Negative) Urine Ketones Negative (Negative) Urine Blood Negative /uL (Negative) Urine Nitrite Negative (Negative) Urine Bilirubin Negative (Negative) Urine Urobilinogen Normal mg/dL (Negative) Urine Leukocyte Esterase Negative /uL (Negative) Urine RBC None seen /hpf (0 - 3) Urine WBC <1 /hpf (0 - 3) Urine Squamous Epithelial Cells None seen /hpf (<5) Urine Bacteria None seen /hpf (None Seen) Urine Glucose Normal mg/dL (Normal) Urine Opiates Screen Neg (NEGATIVE) Urine Fentanyl Screen Neg (NEGATIVE) Urine Barbiturates Screen Neg (NEGATIVE) Urine Phencyclidine Screen Neg (NEGATIVE) Urine Amphetamines Screen Neg (NEGATIVE) Urine Benzodiazepines Screen Neg (NEGATIVE) Urine Cocaine Screen Neg (NEGATIVE) Urine Cannabinoids Screen Pos (NEGATIVE) White Blood Count 6.5 10^3/uL (4.4-10.8) Red Blood Count 4.18 10^6/uL (4.5-5.90) Hemoglobin 13.9 g/dL (13.5-17.5) Hematocrit 40.9 % (41.0-53.0) Mean Corpuscular Volume 98.0 fL (80.0-100.0) Mean Corpuscular Hemoglobin 33.3 pg (28.0-32.0) Mean Corpuscular Hemoglobin Concent 34.0 g/dL (32.0-36.0) Red Cell Distribution Width 13.5 % (11.8-14.3) Platelet Count 186 10^3/uL (140-450) Mean Platelet Volume 8.3 fL (6.9-10.8) Neutrophils (%) (Auto) 61.5 % (37.0-80.0) Lymphocytes (%) (Auto) 28.9 % (10.0-50.0) Monocytes (%) (Auto) 7.6 % (0.0-12.0) Eosinophils (%) (Auto) 1.7 % (0.0-7.0) Basophils (%) (Auto) 0.3 % (0.0-2.0) Neutrophils # (Auto) 4.0 10 ^3/uL (1.6-8.6) Lymphocytes # (Auto) 1.9 10 ^3/uL (0.4-5.4) Monocytes # (Auto) 0.5 10 ^3/uL (0-1.3) Eosinophils # (Auto) 0.1 10 ^3/uL (0-0.8) Basophils # (Auto) 0 10 ^3/uL (0-0.2) Nucleated Red Blood Cells 0.1 % Total Bilirubin 0.3 mg/dL (0.2-1.0) Aspartate Amino Transferase (AST) 13 U/L (13-40) Alanine Aminotransferase (ALT) 16 U/L (7-40) Alkaline Phosphatase 32 U/L (46-116) Total Protein 5.5 g/dL (5.7-8.2) Albumin 3.8 g/dL (3.2-4.8) Vitamin B12 Level 312 pg/mL (211-911) Vitamin D 25-Hydroxy 17.4 ng/mL (30.0-100) Folic Acid 14.43 ng/mL (>5.38) Thyroid Stimulating Hormone (TSH) 2.92 uIU/mL (0.55-4.78) Other Laboratory Tests 05/16/24 04:46 05/15/24 04:49 Brief Hx & Hospital Course: Patient is a 29-year-old male with past medical history of seizure diagnosed in 2021, who came in after experiencing a pre-seizure aura. According to the patient, on Thursday morning 05/14/2024, he started feeling lightheaded, confused with an unsteady gait, patient notes this is the aura he feels usually before he experiences a seizure. Shortly afterwards, patient had his father bring him to the hospital. Per patient, he does not remember having a seizure, only remembers having the aura that prompted this visit to the hospital. Patient notes that he missed his seizure medication on Thursday night 05/13/2024. He reports having his last seizure on 05/08/2024. Patient also notes that previously she used to live in [facility] and he has recently moved to the [facility] area where his father lives. Hospital course: Patient was given IV NS 1 L bolus, IV Keppra 500 mg once and then started on p.o. Keppra 750 mg b.i.d.. UDS was positive for cannabinoids, discussed with the patient in great detail about seizure triggers, how to avoid them as much as possible and on abstinence from marijuana abuse. Vitamin-D and B12 were also replenished. Patient was counseled extensively and in great detail and the importance of adhering to prescribed medication in order to prevent breakthrough seizures, patient exhibited understanding. Psych consult was ordered for the patient and he was subsequently treated with fluoxetine 20 mg p.o. daily, quetiapine 50 mg p.o. daily and repeat psych evaluation was ordered. Patient was also provided resources for placement, patient communicated that he would prefer to arrange and coordinate with their resources himself. On the day of discharge, patient appeared well and had stable vital signs, uber pickup was arranged for the patient. His hospital course was uncomplicated. Patient was prescribed Keppra p.o. 750 mg b.i.d., fluoxetine 20 mg p.o. daily and quetiapine 50 mg p.o. daily. General Appearance: Cooperative. Well developed. Well nourished. NAD Head Exam: Normal inspection Neck Exam: Normal inspection. Non-tender. Normal alignment Pulmonary/Respiratory: Chest non-tender. Clear bilateral breath sounds, no crackles, no wheezing. Cardiovascular/Chest: Regular rate and rhythm. No murmurs. No JVD. Peripheral Pulses: 2+ Radial (R). 2+ Radial (L). 2+ Pedal (R). 2+ Pedal (L) Abdominal Exam: Normal bowel sounds. Soft. normal abdomen, no visible veins, Nontender. No hepatosplenomegaly. No masses Ankle Exam: Negative ankle edema Lower extremities: Negative lower extremity edema Neuro/Mental Status: A&O x4. Coherent. Thoughts/Psych: Normal thought pattern. Appropriate mood and affect. Good judgement and insight Skin Exam: Normal inspection. Normal color. Warm. Dry Psychiatric: Reports feeling depressed, denying any active suicidal ideation, intent or plan today. Condition at Discharge: Good Final Diagnosis/Problems List Seizure disorder ? Breakthrough seizure History of a closed head injury in the past Vitamin-D deficiency Vitamin B12 deficiency Medication noncompliance Major depressive disorder, recurrent and severe Homelessness Discharge Disposition: Home Discharge Instruct/Medications Diet: Regular Activity: No Restrictions, As Tolerated Follow Up/Referral: please follow up with pcp Medications: keppra 750mg twice a day Fluoxetine 20 mg daily Quetiapine 50 mg daily Discharge Statement: "Patient was advised to return to the ER or call 911 if any headaches, dizziness, shortness of breath, chest pain, abdominal pain, bleeding, fevers, or worsening of medical condition. Patient was counseled about treatment plan, medications, possible side effects, patientverbalized understanding. All questions were answered to the best of my ability. This discharge took greater then 30 minutes in planning, reviewing documentation, counseling the patient, and discussing with other team members." ASSESSMENT ASSESSMENT Assessment Seizure disorder ? Breakthrough seizure History of a closed head injury in the past Vitamin-D deficiency Vitamin B12 deficiency Medication noncompliance Major depressive disorder, recurrent and severe Homelessness Date of Service: May 17, 2024 Billing Provider: SHANELL SAENZ MD Common Visit Codes: [id number] DISCH DAY >30min SHIRA CHUNG RESIDENT May 17, 2024 14:22 SHANELL SAENZ MD May 17, 2024 15:41
== END 2024-05-17 16:20 | disposition home or self-care (01) | DRG 53 ==
LOC: ER 11:16 → TELE 19:26 → TELE-WESTW 21:24 → WEST WING 05-16 19:09
PROVIDERS: ADMIT Internal Medicine; ATTEND Internal Medicine
DX: G40.909 Epilepsy, unspecified, not intractable, without status epilepticus (principal); F33.3 Major depressive disorder, recurrent, severe with psychotic symptoms; R45.851 Suicidal ideations; F41.9 Anxiety disorder, unspecified; E55.9 Vitamin D deficiency, unspecified; E53.8 Deficiency of other specified B group vitamins; Z59.00 Homelessness unspecified; Z56.0 Unemployment, unspecified; Z91.148 Patient's other noncompliance with medication regimen for other reason; F12.10 Cannabis abuse, uncomplicated
CPT/HCPCS: 36415; 80048; 80053; 80307; 81001; 82306; 82607; 82746; 84443; 85025; 87081; 99291; G0378

== ENCOUNTER 2025-05-03 21:50 | Emergency (ER) | payer MEDICAID ==
[~2025-05-03] VITALS: Ht 190.5 cm; Wt 91.8 kg
[~2025-05-03 21:50] MED LIST: FLUO1TAB14 PO; LEVE500T3 PO; QUET50TA27 PO
[2025-05-03] MEDS ORDERED: [UNRECOGNIZED DRUG - CODE] PO (22:24)
--- NOTE | 2025-05-03 22:24 | ED.PDOC ---
HPI (NEURO) HPI Comments 30-year-old male presents to ER for medication refill. Patient with past medical history significant for seizures reports that he took his last dose of Keppra 1000 mg b.i.d. this morning and presents to ER today for medication refill of Keppra 1000 mg b.i.d. bringing with him his current prescription bottle. Notes his last seizure was "witnessed" by his friends 4 days ago and refused to go to the ER at that time, denying any head injury and denies any seizure since. Patient presents to ER ambulatory on arrival, alert oriented x4, with steady gait, in no distress. Patient denies headache, confusion, weakness and endorses no further symptoms/complaints Chief Complaint: Seizure Time Seen by MD: 22:01 Primary Care Provider: FANI Dobbins Notes: Nurses Notes, Medications, Allergies Information Source: Patient Mode of Arrival: Ambulatory Past Medical History PAST MEDICAL HISTORY: Depression, Seizures Surgical History: Denies all surgeries Family History Family History: Unknown Social History Smoker: Non-Smoker Alcohol: Occasionally Drugs: Marijuana Lives In: Home Constitutional: denies: chills, diaphoresis, fatigue, fever, malaise, sweats, weakness, others EENTM: denies: blurred vision, double vision, ear bleeding, ear discharge, ear drainage, ear pain, ear ringing, eye pain, eye redness, hearing loss, mouth pain, mouth swelling, nasal discharge, nose bleeding, nose congestion, nose pain, photophobia, tearing, throat pain, throat swelling, voice changes, others Respiratory: denies: cough, hemoptysis, orthopnea, SOB at rest, shortness of breath, SOB with excertion, stridor, wheezing, others Cardiovascular: denies: chest pain, dizzy spells, diaphoresis, Dyspnea on exertion, edema, irregular heart beat, left arm pain, lightheadedness, palpitations, PND, syncope, others Gastrointestinal: denies: abdomen distended, abdominal pain, blood streaked bowels, constipated, diarrhea, dysphagia, difficulty swallowing, hematemesis, melena, nausea, poor appetite, poor fluid intake, rectal bleeding, rectal pain, vomiting, others Genitourinary: denies: burning, dysuria, flank pain, frequency, hematuria, incontinence, penile discharge, penile sore, pain, testicle pain, testicle swelling, urgency, others Neurological: reports: others (As stated in HPI) Musculoskeletal: denies: back pain, gout, joint pain, joint swelling, muscle pain, muscle stiffness, neck pain, others Integumetry: denies: bruises, change in color, change in hair/nails, dryness, laceration, lesions, lumps, rash, wounds, others Allergic/Immunocompromised: denies: Difficulty Healing, Frequent Infections, Hives, Itching, others Hematologic/Lymphatic: denies: anemia, blood clots, easy bleeding, easy bruising, swollen glands, others Endocrine: denies: excessive hunger, excessive sweating, excessive thirst, excessive urination, flushing, intolerance to cold, intolerance to heat, unexplained weight gain, unexplained weight loss, others Psychiatric: denies: anxiety, bipolar disorder, depression, hopeless, panic disorder, schizophrenia, sleepless, suicidal, others Physical Exam General Appearance: No Apparent Distress HEENT: PERRL/EOMI Neck: Full Range of Motion, Non-Tender, Normal Respiratory: Chest Non-Tender, Lungs Clear, No Accessory Muscle Use, No Respiratory Distress, Normal Breath Sounds Cardiovascular: No Murmur, No Gallop, Regular Rate/Rhythm Breast Exam: Deferred Gastrointestinal: NOT DONE Genitalia: Deferred Pelvic: Deferred Rectal: Deferred Extremities: Normal capillary refill, Normal range of motion Neurologic: Alert, shower screen installer II-XII nml as Tested, No Motor Deficits, Normal Affect, Normal Mood, No Sensory Deficits Cerebellar Function: Normal Reflexes: Normal Skin: Dry, Normal Color, Warm Lymphatic: No Adenopathy Was a procedure done? Was a procedure done?: No Sedation Sedation?: No Differential Diagnosis (SZ) Seizure: Closed Head Injury, Syncope, Epilepsy-Status Headache: Subarachnoid Hemorrhage, Subdural Hemorrhage, Mass Lesion X-Ray, Labs, Meds, VS Vital Signs Date Time Temp Pulse Resp B/P (MAP) Pulse Ox O2 Delivery O2 Flow Rate FiO2 05/03/25 21:55 99.6 94 20 144/105 97 99.6 Patient asymptomatic during ER visit/prior to discharge Strict return precautions discussed and advised Keppra 1000 mg p.o. ordered Advised to follow up with PCP in 1-2 days Patient alert and oriented x4 prior to discharge. Patient verbalized understanding and agreeable with current plan of care Advised to return to ER immediately if symptoms worsen Time of 1ST Reevaluation: 22:02 Reevaluation 1ST: N/A Patient Education/Counseling: Diagnosis, Treatment, Prognosis, Need For Follow Up Family Education/Counseling: No Family Present Departure 1 Departure Time of Disposition: 22:22 Impression: Primary Impression: Seizure disorder Additional Impression: Medication refill Disposition: 01 HOME / SELF CARE / HOMELESS Condition: Stable e-Prescriptions Levetiracetam (Keppra Xr) 500 Mg Tab 2 TAB PO BID, #60 TAB 0 Refills Prov: CLEMENT SAENZ 05/03/25 Discharged With: Friend Critical Care Note Critical Care Time?: No Stability Stability form required: No Heart Score Heart Score: Heart Score Response (Comments) Value History N/A 0 EKG N/A 0 Age N/A 0 Risk Factors N/A 0 Troponin N/A 0 Total 0 CLEMENT SAENZ May 03, 2025 22:24
[2025-05-03 22:26] VITALS: BP 144/105; PULSE 94; RESP 20; TEMP 99.6; O2SAT 97
[2025-05-03] MEDS: levETIRAcetam 500 MG TAB PO ONE (22:33)
== END 2025-05-03 22:34 | disposition home or self-care (01) ==
LOC: ER 21:50
DX: G40.909 Epilepsy, unspecified, not intractable, without status epilepticus (principal); Z76.0 Encounter for issue of repeat prescription

== ENCOUNTER 2025-05-25 14:10 | Inpatient (IN) | payer MEDICAID ==
[~2025-05-25] VITALS: Ht 188 cm; Wt 91.2 kg
[~2025-05-25 14:10] MED LIST changes: +[UNRECOGNIZED DRUG - CODE] PO
[2025-05-25 14:43] VITALS: PULSE 99; RESP 27; O2SAT 100
[2025-05-25] MEDS: SODIUM CHLORIDE 0.9% 1,000 ML IVB ONE (14:44)
[2025-05-25] MEDS: LORazepam 2MG/ML-1ML VIAL ONE (14:44)
[2025-05-25] MEDS: LORazepam 2MG/ML-1ML VIAL IV ONE (14:44)
[2025-05-25] MEDS: ONDANSETRON HCL 4 MG/2 ML VIAL IV ONE (14:44)
[2025-05-25] MEDS: levETIRAcetam 1000 mg/100ml 100 ML IV ONE (14:44)
--- NOTE | 2025-05-25 14:45 | ED.PDOC ---
History of Present Illness HPI Comments This is a 30-year-old male who comes in with chief complaint of seizure today. The brother witnessed a seizure but he is not sure how long it lasted. The patient is also having some nausea and had some vomiting at home. The patient was brought from the house and it is unknown when the patient had his last s eizure. 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 According to the paramedics, the patient has been drinking alcohol and smoking marijuana last night. Upon arrival, the patient is slightly nonverbal and seems to be somewhat postictal. While in the director of extension work gurney, the patient had another seizure lasting approximately 20 seconds. During that period of time the patient's IV was dislodged and the patient was given Ativan 2 mg IM. EN route the patient's Accu-Chek was 143 Chief Complaint: Seizure Time Seen by MD: 14:12 Primary Care Provider: FANI Reviewed Notes: Nurses Notes, Production Honing Machine Operator Notes, Medications, Allergies (No allergies to medications) Allergies: Coded Allergies: NO KNOWN ALLERGIES (Unverified , 05/14/24) Home Meds Active Scripts Levetiracetam (Keppra Xr) 500 Mg Tab, 2 TAB PO BID, #60 TAB 0 Refills Prov:CLEMENT SAENZ 05/03/25 Quetiapine Fumerate (QUETIAPINE FUMARATE) 50 Mg Tab, 50 MG PO DAILY for 30 Days, #30 TAB Prov:SHIRA CHUNG RESIDENT 05/17/24 Fluoxetine HCl (Pmdd) (Fluoxetine HCl) 20 Mg Tab, 20 MG PO DAILY for 30 Days, #30 TAB Prov:SHIRA CHUNG RESIDENT 05/17/24 Reported Medications Levetiracetam (Levetiracetam) 500 Mg Tab, 1.5 TAB PO BID 05/14/24 Information Source: Patient, Emergency Med Personnel Mode of Arrival: EMS Severity: Moderate Timing: Hours Duration: Minutes Prehospital treatment: Pencil Maker, IVF Associated signs and symptoms The patient is having nausea and vomiting Past Medical History PAST MEDICAL HISTORY: Depression, Seizures Past Medical History (Other): TBI Surgical History: Denies all surgeries Family History Family History: Unknown Social History Smoker: Non-Smoker Alcohol: Occasionally Drugs: Marijuana Lives In: Home Constitutional: denies: chills, diaphoresis, fatigue, fever, malaise, sweats, weakness, others EENTM: denies: blurred vision, double vision, ear bleeding, ear discharge, ear drainage, ear pain, ear ringing, eye pain, eye redness, hearing loss, mouth pain, mouth swelling, nasal discharge, nose bleeding, nose congestion, nose pain, photophobia, tearing, throat pain, throat swelling, voice changes, others Respiratory: denies: cough, hemoptysis, orthopnea, SOB at rest, shortness of breath, SOB with excertion, stridor, wheezing, others Cardiovascular: denies: chest pain, dizzy spells, diaphoresis, Dyspnea on exertion, edema, irregular heart beat, left arm pain, lightheadedness, palpitations, PND, syncope, others Gastrointestinal: reports: nausea, vomiting; denies: abdomen distended, abdominal pain, blood streaked bowels, constipated, diarrhea, dysphagia, difficulty swallowing, hematemesis, melena, poor appetite, poor fluid intake, rectal bleeding, rectal pain, others Genitourinary: denies: burning, dysuria, flank pain, frequency, hematuria, incontinence, penile discharge, penile sore, pain, testicle pain, testicle swelling, urgency, others Neurological: reports: seizure; denies: dizziness, fainting, headache, left sided numbness, left sided weakness, numbness, paresthesia, pre-existing deficit, right sided numbness, right sided weakness, speech problems, tingling, tremors, weakness, others Musculoskeletal: denies: back pain, gout, joint pain, joint swelling, muscle pain, muscle stiffness, neck pain, others Integumetry: denies: bruises, change in color, change in hair/nails, dryness, laceration, lesions, lumps, rash, wounds, others Allergic/Immunocompromised: denies: Difficulty Healing, Frequent Infections, Hives, Itching, others Hematologic/Lymphatic: denies: anemia, blood clots, easy bleeding, easy bruising, swollen glands, others Endocrine: denies: excessive hunger, excessive sweating, excessive thirst, excessive urination, flushing, intolerance to cold, intolerance to heat, unexplained weight gain, unexplained weight loss, others Psychiatric: denies: anxiety, bipolar disorder, depression, hopeless, panic disorder, schizophrenia, sleepless, suicidal, others Physical Exam General Appearance: Moderate Distress HEENT: Normal ENT Inspection, Pharynx Normal, TMs Normal Neck: Full Range of Motion, Non-Tender, Normal, Normal Inspection Respiratory: Chest Non-Tender, Lungs Clear, No Accessory Muscle Use, No Respiratory Distress, Normal Breath Sounds Cardiovascular: No Edema, No JVD, No Murmur, No Gallop, Normal Peripheral Pulses, Regular Rate/Rhythm Breast Exam: Deferred Gastrointestinal: No Organomegaly, Non Tender, No Pulsatile Mass, Normal Bowel Sounds, Soft Genitalia: Deferred Pelvic: Deferred Rectal: Deferred Extremities: No calf tenderness, Normal capillary refill, No pedal edema Musculoskeletal : Apperance: Normal Neurologic: product safety administrator II-XII nml as Tested, Motor Weakness, No Sensory Deficits, Other (The patient is somewhat postictal) Cerebellar Function: Unable to Test Reflexes: Normal Skin: Dry, Normal Color, Warm Lymphatic: No Adenopathy Was a procedure done? Was a procedure done?: No Differential Dx Considerations may include: Seizure activity, generalized weakness, electrolyte imbalance X-Ray, Labs, Meds, VS Vital Signs Date Time Temp Pulse Resp B/P (MAP) Pulse Ox O2 Delivery O2 Flow Rate FiO2 05/25/25 16:00 95 25 118/60 (79) 100 05/25/25 14:43 99 27 120/59 (79) 100 05/25/25 14:43 99 27 100 Room Air* 0 21 05/25/25 14:36 98.7 106 16 121/68 96 98.7 Lab Test 05/25/25 14:38 Range/Units White Blood Count 25.7 H 4.4-10.8 10^3/uL Red Blood Count 4.88 4.5-5.90 10^6/uL Hemoglobin 15.9 13.5-17.5 g/dL Hematocrit 48.8 41.0-53.0 % Mean Corpuscular Volume 100.0 80.0-100.0 fL Mean Corpuscular Hemoglobin 32.7 H 28.0-32.0 pg Mean Corpuscular Hemoglobin Concent 32.7 32.0-36.0 g/dL Red Cell Distribution Width 13.5 11.8-14.3 % Platelet Count 254 140-450 10^3/uL Mean Platelet Volume 7.9 6.9-10.8 fL Neutrophils (%) (Auto) 37.0-80.0 % Lymphocytes (%) (Auto) 10.0-50.0 % Monocytes (%) (Auto) 0.0-12.0 % Basophils (%) (Auto) 0.0-2.0 % Neutrophils # (Auto) 1.6-8.6 10 ^3/uL Lymphocytes # (Auto) 0.4-5.4 10 ^3/uL Monocytes # (Auto) 0-1.3 10 ^3/uL Differential Total Cells Counted 100.0 100 Neutrophils % (Manual) 86 H 37.0-80.0 Band Neutrophils % (Manual) 3 Lymphocytes % (Manual) 5 L 10.0-50.0 Monocytes % (Manual) 6 0-12 Eosinophils % (Manual) 0 0-7 Basophils % (Manual) 0 0.0-2.0 Metamyelocytes % (manual) 0 Myelocytes % (Manual) 0 Promyelocytes % (Manual) 0 Blast Cells % (Manual) 0 Reactive Lymphocytes 0 Platelet Estimate Adequate Red Blood Cell Morphology Normal Sodium Level 140 136-145 mmol/L Potassium Level 3.6 3.5-5.1 mmol/L Chloride Level 102 98-107 mmol/L Carbon Dioxide Level < 10 *L 20-31 mmol/L Anion Gap 28.56820 H 5-15 Blood Urea Nitrogen 8 L 9-23 mg/dL Creatinine 2.27 H 0.700-1.30 mg/dL Glomerular Filtration Rate Calc 39 >90 mL/min BUN/Creatinine Ratio 3.5 L 10.0-20.0 Serum Glucose 121 H 74-106 mg/dL Calcium Level 9.3 8.7-10.4 mg/dL Plasma/Serum Blood Alcohol < 3.0 <10 mg/dL Current Medications Medications (Trade) Dose Ordered Sig/Annamaria Route Start Time Stop Time Status Last Admin Sodium Chloride 1,000 ml @ 1,000 mls/hr Q1H ONCE IVB 05/25/25 14:15 05/25/25 15:14 DC 05/25/25 14:44 Ondansetron HCl (Zofran) 4 mg ONCE ONCE IV 05/25/25 14:15 05/25/25 14:18 DC 05/25/25 14:44 Levetiracetam 100 ml @ 400 mls/hr ONCE ONCE IV 05/25/25 14:15 05/25/25 14:29 DC 05/25/25 14:44 Lorazepam (Ativan Inj) 2 mg ONCE ONCE IV 05/25/25 14:45 05/25/25 14:46 DC 05/25/25 14:44 IV Hep-Lock was reestablished. The patient is already being given Ativan 2 mg IM The patient has been given Keppra 1000 mg IV piggyback The patient's CBC shows an elevated white blood cell count of 25.7 which is most likely consistent with a seizure activity The chemistry panel is within normal limits except for CO2 level less than 10 and an anion gap of 28 The patient's glucose level is one Patient does have some metabolic imbalance The patient was given Keppra IV piggyback The patient was also bolused with a saline The patient is being admitted at this time. The CAT scan of the head is negative Images Reviewed?: Images reviewed and evaluated by me Time of 1ST Reevaluation: 14:44 Reevaluation 1ST: Unchanged Patient Education/Counseling: Diagnosis, Treatment, Prognosis Family Education/Counseling: No Family Present SEPSIS Sepsis Screen Date sepsis recognized/suspect: May 25, 2025 Time Sepsis recognized/suspect: 1437 Recent Procedure: No On Antibiotic Therapy: No Respiratory Rate >20: No Heart Rate >90: Yes Temp<36 C (96.8 F) or >38.3 C: No SBP <90 or MAP <65 mmHG: No New Acute Mental Status Change: No Is the patient on CPAP, BIPAP,: No Physician Orders Pulse Oximetry (05/25/25 14:15) Blood Pressure (05/25/25 14:15) Drug Screen (05/25/25 14:15) Heplock Iv (05/25/25 14:15) Seizure Precautions (05/25/25 14:15) Pencil Maker (05/25/25 14:15) Head Without Contrast (05/25/25 14:15) Vital Signs Date Time Temp Pulse Resp B/P (MAP) Pulse Ox O2 Delivery O2 Flow Rate FiO2 05/25/25 16:00 95 25 118/60 (79) 100 05/25/25 14:43 99 27 120/59 (79) 100 05/25/25 14:43 99 27 100 Room Air* 0 21 05/25/25 14:36 98.7 106 16 121/68 96 98.7 Laboratory Tests Test 05/25/25 14:38 White Blood Count 25.7 10^3/uL (4.4-10.8) H Medications Medications Dose Ordered Sig/Annamaria Route Start Time Stop Time Status Last Admin Dose Admin Levetiracetam 100 ml @ 400 mls/hr ONCE ONCE IV 05/25/25 14:15 05/25/25 14:29 DC 05/25/25 14:44 Lorazepam 2 mg ONCE ONCE IV 05/25/25 14:45 05/25/25 14:46 DC 05/25/25 14:44 Ondansetron HCl 4 mg ONCE ONCE IV 05/25/25 14:15 05/25/25 14:18 DC 05/25/25 14:44 Sodium Chloride 1,000 ml @ 1,000 mls/hr Q1H ONCE IVB 05/25/25 14:15 05/25/25 15:14 DC 05/25/25 14:44 Departure 1 Departure Time of Disposition: 18:19 Impression: Primary Impression: Increasing frequency of seizure activity Additional Impression: Altered mental status Qualified Codes: R41.82 - Altered mental status, unspecified Disposition: 09 ADMITTED INPATIENT Admit to: Tele Condition: Fair Critical Care Note Critical Care Time?: Yes (45 min-critical care time only) Stability Stability form required: Yes Unstable for transfer: Telemetry monitoring (Telemetry monitoring required), ED Physician Assesment (Clinical assesment) Heart Score Heart Score: Heart Score Response (Comments) Value History N/A 0 EKG N/A 0 Age N/A 0 Risk Factors N/A 0 Troponin N/A 0 Total 0 LISSET DIAZ MD May 25, 2025 14:45
[2025-05-25 15:06] LABS: Hematocrit 48.8 % (41.0-53.0); Hemoglobin 15.9 g/dL (13.5-17.5); Mean Corpuscular Hemoglobin 32.7 pg (28.0-32.0); Mean Corpuscular Volume 100.0 fL (80.0-100.0)
[2025-05-25 15:21] LABS: Anion Gap 28.00001 (5-15); Chloride 102 mmol/L (98-107); Potassium 3.6 mmol/L (3.5-5.1); Sodium 140 mmol/L (136-145)
[2025-05-25 15:22] LABS: Calcium 9.3 mg/dL (8.7-10.4)
[2025-05-25 15:27] LABS: BUN/Creatinine Ratio 3.5 (10.0-20.0)
[2025-05-25 15:30] LABS: Blood Urea Nitrogen 8 mg/dL (9-23); Glucose 121 mg/dL (74-106)
[2025-05-25 15:34] LABS: Carbon Dioxide < 10 mmol/L (20-31)
--- NOTE | 2025-05-25 16:02 | DVH ---
EXAM DESCRIPTION: CT HEAD WITHOUT CONTRAST CLINICAL HISTORY: seizure COMPARISON: CT BRAIN on DOS: 11/10/24 TECHNIQUE: Noncontrast CT head was performed. Coronal MPR images were generated. CTDI/ DLP = 53.99 / 863.9. Dose reduction technique with one or more of the following methods was performed: Automated exposure control, adjustment of the mA and/or kV according to patient size, use of iterative reconstruction technique. FINDINGS: No evidence of acute intracranial hemorrhage. No mass effect. No extra-axial collections of fluid or blood. The brain is normal in attenuation. The ventricles and sulci are normal in size for age. Clear basal cisterns. The calvarium is intact. The soft tissues are unremarkable. The paranasal sinuses and mastoid air cells are clear. IMPRESSION: 1. No acute intracranial findings.
[2025-05-25 16:14] LABS: RBC Morphology Normal; Total Cells Counted 100.0 (100)
[2025-05-25] MEDS ORDERED: TEMAZEPAM 15 MG CAP PO PRN (18:00)
[2025-05-25] MEDS ORDERED: LORazepam 2MG/ML-1ML VIAL IV PRN (18:00)
[2025-05-25] MEDS ORDERED: ONDANSETRON HCL 4 MG/2 ML VIAL IV PRN (18:00)
[2025-05-25] MEDS: SODIUM CHLORIDE 0.9% 1,000 ML IV ONE (18:56)
[2025-05-25 19:06] LABS: Potassium 3.8 mmol/L (3.5-5.1); Sodium 140 mmol/L (136-145)
[2025-05-25 19:07] LABS: Anion Gap 13 (5-15); Carbon Dioxide 20 mmol/L (20-31)
[2025-05-25 19:12] LABS: BUN/Creatinine Ratio 4.2 (10.0-20.0); Blood Urea Nitrogen 9 mg/dL (9-23); Glucose 86 mg/dL (74-106)
[2025-05-25 19:30] LABS: Chloride 107 mmol/L (98-107)
[2025-05-25 19:31] LABS: Calcium 8.4 mg/dL (8.7-10.4)
--- NOTE | 2025-05-25 20:00 | DVHHP2 ---
History of Present Illness Reason for Visit: Seizure History of Present Illness 30-year-old male presents for evaluation of seizure activity. Patient is currently alert oriented x4. Patient had two witnessed seizures today. Denies head trauma or oral trauma. 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 He is currently taking Keppra 1000 mg twice a day and reports being compliant with his medications. Denies headache or blurred vision. No other acute complaints. Past Medical History TBI, seizure Past Surgical History Denies Family History Noncontributory Smoke: No ALCOHOL: occassional Drugs: Marijuana Lives: with Family Review of Systems Review of Systems Review of systems are currently negative otherwise addressed in HPI. Allergies: Coded Allergies: NO KNOWN ALLERGIES (Unverified , 05/14/24) Medications Current Medications Medications Dose Ordered Sig/Annamaria Route Start Time Stop Time Status Last Admin Dose Admin Levetiracetam 1,000 mg BID PO 05/25/25 22:00 Lorazepam 1 mg Q5MINP PRN IV 05/25/25 18:00 Temazepam 15 mg QHSP PRN PO 05/25/25 18:00 Ondansetron HCl 4 mg Q4HP PRN IV 05/25/25 18:00 Acetaminophen 650 mg Q6HP PRN PO 05/25/25 18:00 Exam Vital Signs Vital Signs Date Time Temp Pulse Resp B/P (MAP) Pulse Ox O2 Delivery O2 Flow Rate FiO2 05/25/25 18:00 89 15 110/45 (66) 100 05/25/25 14:43 Room Air* 0 21 05/25/25 14:36 98.7 98.7 Exam Gen: 30-year-old male in mild distress. Skin: Warm, dry, normal color and texture, no rash. HEENT: Normocephalic atraumatic, mucous membranes moist and pink. Neck: Cervical and supraclavicular nodes normal without enlargement, trachea is midline, thyroid gland is normal without masses. Pulmonary: Clear to auscultation and percussion bilaterally. Cardiac: Regular rate and rhythm. No murmur Abdomen: Soft, nontender, nondistended, bowel sounds present all 4 quadrants, no guarding, no rigidity, no organomegaly. Extremities: No cyanosis, clubbing, no edema Neuro: Cranial nerves II through XII grossly intact, normal affect and speech, no focal motor deficits. Labs/Xrays ORDERING PHYSICIAN: LISSET DIAZ MD PROCEDURE(s): HWOCT - HEAD WITHOUT CONTRAST REASON: seizure ORDER NUMBER(s): [id number], ACCESSION NUMBER(s): [id number] EXAM DESCRIPTION: CT HEAD WITHOUT CONTRAST CLINICAL HISTORY: seizure COMPARISON: CT BRAIN on DOS: 11/10/24 TECHNIQUE: Noncontrast CT head was performed. Coronal MPR images were generated. CTDI/ DLP = 53.99 / 863.9. Dose reduction technique with one or more of the following methods was performed: Automated exposure control, adjustment of the mA and/or kV according to patient size, use of iterative reconstruction technique. FINDINGS: No evidence of acute intracranial hemorrhage. No mass effect. No extra-axial collections of fluid or blood. The brain is normal in attenuation. The ventricles and sulci are normal in size for age. Clear basal cisterns. The calvarium is intact. The soft tissues are unremarkable. The paranasal sinuses and mastoid air cells are clear. IMPRESSION: 1. No acute intracranial findings. Labs Test 05/25/25 18:12 05/25/25 14:38 Range/Units Sodium Level 140 136-145 mmol/L Potassium Level 3.8 3.5-5.1 mmol/L Chloride Level 107 98-107 mmol/L Carbon Dioxide Level 20 # 20-31 mmol/L Anion Gap 13 5-15 Blood Urea Nitrogen 9 9-23 mg/dL Creatinine 2.12 H 0.700-1.30 mg/dL Glomerular Filtration Rate Calc 43 >90 mL/min BUN/Creatinine Ratio 4.2 L 10.0-20.0 Serum Glucose 86 74-106 mg/dL Calcium Level 8.4 L 8.7-10.4 mg/dL White Blood Count 25.7 H 4.4-10.8 10^3/uL Red Blood Count 4.88 4.5-5.90 10^6/uL Hemoglobin 15.9 13.5-17.5 g/dL Hematocrit 48.8 41.0-53.0 % Mean Corpuscular Volume 100.0 80.0-100.0 fL Mean Corpuscular Hemoglobin 32.7 H 28.0-32.0 pg Mean Corpuscular Hemoglobin Concent 32.7 32.0-36.0 g/dL Red Cell Distribution Width 13.5 11.8-14.3 % Platelet Count 254 140-450 10^3/uL Mean Platelet Volume 7.9 6.9-10.8 fL Neutrophils (%) (Auto) 37.0-80.0 % Lymphocytes (%) (Auto) 10.0-50.0 % Monocytes (%) (Auto) 0.0-12.0 % Basophils (%) (Auto) 0.0-2.0 % Neutrophils # (Auto) 1.6-8.6 10 ^3/uL Lymphocytes # (Auto) 0.4-5.4 10 ^3/uL Monocytes # (Auto) 0-1.3 10 ^3/uL Differential Total Cells Counted 100.0 100 Neutrophils % (Manual) 86 H 37.0-80.0 Band Neutrophils % (Manual) 3 Lymphocytes % (Manual) 5 L 10.0-50.0 Monocytes % (Manual) 6 0-12 Eosinophils % (Manual) 0 0-7 Basophils % (Manual) 0 0.0-2.0 Metamyelocytes % (manual) 0 Myelocytes % (Manual) 0 Promyelocytes % (Manual) 0 Blast Cells % (Manual) 0 Reactive Lymphocytes 0 Platelet Estimate Adequate Red Blood Cell Morphology Normal Plasma/Serum Blood Alcohol < 3.0 <10 mg/dL SEPSIS Sepsis Screen Date sepsis recognized/suspect: May 25, 2025 Time Sepsis recognized/suspect: 1437 Recent Procedure: No On Antibiotic Therapy: No Respiratory Rate >20: No Heart Rate >90: Yes Temp<36 C (96.8 F) or >38.3 C: No SBP <90 or MAP <65 mmHG: No New Acute Mental Status Change: No Is the patient on CPAP, BIPAP,: No Physician Orders Pulse Oximetry (05/25/25 14:15) Blood Pressure (05/25/25 14:15) Drug Screen (05/25/25 14:15) Heplock Iv (05/25/25 14:15) Seizure Precautions (05/25/25 14:15) Sole Leveling Machine Operator (05/25/25 14:15) Head Without Contrast (05/25/25 14:15) Regular Diet (05/25/25 Dinner) Levetiracetam Tablet (Keppra Tablet) (05/25/25 22:00) Lorazepam 2mg/Ml Inj (Ativan Inj) (05/25/25 18:00) Sodium Chloride 0.9% (05/25/25 18:00) Basic Metabolic Panel (05/26/25 04:00) Seizure Precautions In Place (05/25/25 17:53) Admit (05/25/25 17:53) Temazepam (Restoril) (05/25/25 18:00) Ondansetron Hcl (Zofran) (05/25/25 18:00) Complete Blood Count (05/26/25 04:00) Condition: Stable (05/25/25 17:53) Acetaminophen Tablet (Tylenol Tablet) (05/25/25 18:00) Bedrest With Bathroom Privileg (05/25/25 17:53) * Neurology Consult (05/25/25 19:53) Vital Signs Date Time Temp Pulse Resp B/P (MAP) Pulse Ox O2 Delivery O2 Flow Rate FiO2 05/25/25 18:00 89 15 110/45 (66) 100 05/25/25 16:00 95 25 118/60 (79) 100 05/25/25 14:43 99 27 120/59 (79) 100 05/25/25 14:43 99 27 100 Room Air* 0 21 05/25/25 14:36 98.7 106 16 121/68 96 98.7 Laboratory Tests Test 05/25/25 14:38 White Blood Count 25.7 10^3/uL (4.4-10.8) H Medications Medications Dose Ordered Sig/Annamaria Route Start Time Stop Time Status Last Admin Dose Admin Levetiracetam 100 ml @ 400 mls/hr ONCE ONCE IV 05/25/25 14:15 05/25/25 14:29 DC 05/25/25 14:44 400 MLS/HR Lorazepam 2 mg ONCE ONCE IV 05/25/25 14:45 05/25/25 14:46 DC 05/25/25 14:44 2 MG Ondansetron HCl 4 mg ONCE ONCE IV 05/25/25 14:15 05/25/25 14:18 DC 05/25/25 14:44 4 MG Sodium Chloride 1,000 ml @ 125 mls/hr Q8H ONCE IV 05/25/25 18:00 05/26/25 01:59 05/25/25 18:56 125 MLS/HR Sodium Chloride 1,000 ml @ 1,000 mls/hr Q1H ONCE IVB 05/25/25 14:15 05/25/25 15:14 DC 05/25/25 14:44 1,000 MLS/HR Assessment/Plan Assessment/Plan Assessment Breakthrough seizure Leukocytosis,? Reactive Plan Admit the patient to [facility] surge to the hospitalist Resume home medications Seizure precautions Nephrology consultation Continue treatment per orders. Plan discussed with: Patient My Orders Orders - MIRA CULVER Procedure Category Date Status Time Regular Diet DIET 05/25/25 Transmitted Dinner Levetiracetam Tablet PHA 05/25/25 In Process (Keppra Tablet) 22:00 Lorazepam 2mg/Ml Inj PHA 05/25/25 In Process (Ativan Inj) 18:00 Sodium Chloride 0.9% PHA 05/25/25 In Process 18:00 Basic Metabolic Panel LAB 05/26/25 Verified 04:00 Seizure Precautions REVA 05/25/[address] 17:53 Admit ADMIT 05/25/25 Transmitted 17:53 Temazepam (Restoril) PHA 05/25/25 In Process 18:00 Ondansetron Hcl PHA 05/25/25 In Process (Zofran) 18:00 Complete Blood Count LAB 05/26/25 Verified 04:00 Condition: Stable REVA 05/25/25 In Process 17:53 Acetaminophen Tablet PHA 05/25/25 In Process (Tylenol Tablet) 18:00 Bedrest With Bathroom REVA 05/25/25 In Process Privileg 17:53 * Neurology Consult CONS 05/25/25 Transmitted 19:53 Date of Service: May 25, 2025 Billing Provider: MIRA CULVER Common Visit Codes: [id number] INP/OBS CARE (MOD) MIRA CULVER May 25, 2025 20:00
[2025-05-25 20:18] VITALS: PULSE 61; RESP 16; O2SAT 100
[2025-05-25] MEDS: levETIRAcetam 500 MG TAB PO SCH (22:28)
[2025-05-26] VITALS (8 sets, daily range): BP systolic 106–127; BP diastolic 52–81; PULSE 64–87; RESP 16–20; TEMP 97.9–98.7; O2SAT 96–99
[2025-05-26 08:25] LABS: Sodium 140 mmol/L (136-145)
[2025-05-26 08:26] LABS: Anion Gap 12 (5-15); Carbon Dioxide 21 mmol/L (20-31); Chloride 107 mmol/L (98-107); Potassium 3.2 mmol/L (3.5-5.1)
[2025-05-26 08:31] LABS: BUN/Creatinine Ratio 3.4 (10.0-20.0); Glucose 84 mg/dL (74-106)
[2025-05-26 08:34] LABS: Blood Urea Nitrogen 8 mg/dL (9-23); Calcium 8.4 mg/dL (8.7-10.4)
[2025-05-26 08:59] LABS: Hematocrit 44.8 % (41.0-53.0); Hemoglobin 14.9 g/dL (13.5-17.5); Mean Corpuscular Hemoglobin 32.0 pg (28.0-32.0); Mean Corpuscular Volume 96.0 fL (80.0-100.0); Nucleated Red Blood Cells % 0.0 %
[2025-05-26] MEDS: ACETAMINOPHEN 325 MG TAB PO PRN (09:36)
--- NOTE | 2025-05-26 11:56 | DVHPN2 ---
Progress Note Date Seen: May 26, 2025 Medical Necessity Reason Pt with a Central, PICC or Fol: No Subjective Patient reports: No new complaints (Patient denied have another episode seizure.) Changes from previous H/P or p: No Changes Objective vital signs Vital Sign Date Time Temp Pulse Resp B/P (MAP) Pulse Ox O2 Delivery O2 Flow Rate FiO2 05/26/25 09:10 97.9 87 17 127/74 (91) 99 97.9 05/26/25 08:00 Room Air* 0 21 Total Intake and Output 05/25/25 05/25/25 05/26/25 15:00 23:00 07:00 Intake Total 1100 ml 400 ml Output Total 1025 ml Balance 1100 ml -625 ml medications Current Medications Medications Dose Ordered Sig/Annamaria Route Start Time Stop Time Status Last Admin Dose Admin Levetiracetam 1,000 mg BID PO 05/25/25 22:00 05/26/25 09:08 1,000 MG Lorazepam 1 mg Q5MINP PRN IV 05/25/25 18:00 Temazepam 15 mg QHSP PRN PO 05/25/25 18:00 Ondansetron HCl 4 mg Q4HP PRN IV 05/25/25 18:00 Acetaminophen 650 mg Q6HP PRN PO 05/25/25 18:00 05/26/25 09:36 650 MG Examination: GENERAL:Normal, HEENT:Normal, NECK:Normal, LUNGS:Normal, CVS:Normal, ABDOMEN:Normal, MSK:Normal, SKIN:Normal, NEURO:Normal laboratory and microbiology Laboratory Tests 05/26/25 06:11 Test 05/26/25 06:11 Range/Units Serum Glucose 84 74-106 mg/dL Labs and/or images reviewed: Labs reviewed by me, Image(s) reviewed by me Problem List/Assessment/Plan Problem List/Assessment/Plan Breakthrough seizure Leukocytosis,? Reactive Plan Resume home medications Seizure precautions Neurology consulted for seizure. Check brain MRI Aspirin Neuro check per floor protocol Seizure precaution Heparin for DVT prophylaxis Plan discussed with: Patient Date of Service: May 26, 2025 Billing Provider: LETI TIJERINA MD Common Visit Codes: [id number] SAME DATE (HIGH) LETI TIJERINA MD May 26, 2025 11:56
[2025-05-26 13:25] LABS: Sodium 141 mmol/L (136-145)
[2025-05-26 13:26] LABS: Anion Gap 12 (5-15); Carbon Dioxide 22 mmol/L (20-31); Chloride 107 mmol/L (98-107); Potassium 3.4 mmol/L (3.5-5.1)
[2025-05-26 13:30] LABS: Calcium 8.5 mg/dL (8.7-10.4)
[2025-05-26 13:32] LABS: BUN/Creatinine Ratio 5.8 (10.0-20.0); Blood Urea Nitrogen 12 mg/dL (9-23); Glucose 87 mg/dL (74-106)
[2025-05-27] VITALS (8 sets, daily range): BP systolic 112–128; BP diastolic 70–93; PULSE 62–73; RESP 16–20; TEMP 98.1–98.5; O2SAT 97–99
[2025-05-27 05:46] LABS: Hematocrit 44.4 % (41.0-53.0); Hemoglobin 15.5 g/dL (13.5-17.5); Mean Corpuscular Hemoglobin 32.8 pg (28.0-32.0); Mean Corpuscular Volume 94.0 fL (80.0-100.0); Nucleated Red Blood Cells % 0.0 %
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
[2025-05-27 16:58] LABS: Cannabinoid Screen, Urine Pos (NEGATIVE); Cocaine Screen, Urine Neg (NEGATIVE)
[2025-05-27 17:07] LABS: Amphetamine Screen, Urine Neg (NEGATIVE); Barbiturate Scree,Urine Neg (NEGATIVE); Benzodiazephine Screen, Urine Neg (NEGATIVE); Opiate Scree,Urine Neg (NEGATIVE); Phencyclidine Screen, Urine Neg (NEGATIVE)
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
[2025-05-28 01:00] VITALS: BP 125/83; PULSE 70; RESP 18; TEMP 98.1; O2SAT 99
[2025-05-28 05:00] VITALS: BP 128/87; PULSE 65; RESP 16; TEMP 98.2; O2SAT 99
[2025-05-28 07:16] LABS: Hematocrit 44.7 % (41.0-53.0); Hemoglobin 15.2 g/dL (13.5-17.5); Mean Corpuscular Hemoglobin 32.1 pg (28.0-32.0); Mean Corpuscular Volume 94.2 fL (80.0-100.0); Nucleated Red Blood Cells % 0.1 %
[2025-05-28 08:00] VITALS: PULSE 63; RESP 18; O2SAT 99
[2025-05-28 09:00] VITALS: BP_SYST 118; BP_SYST 128; BP_DIAS 55; BP_DIAS 73; PULSE 63; PULSE 77; RESP 18; RESP 20; TEMP 98.3; TEMP 98.4; O2SAT 97; O2SAT 99
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
[2025-05-28 09:48] LABS: Potassium 3.9 mmol/L (3.5-5.1); Sodium 141 mmol/L (136-145)
[2025-05-28 09:49] LABS: Anion Gap 5 (5-15); Carbon Dioxide 27 mmol/L (20-31)
[2025-05-28 09:50] LABS: Calcium 9.0 mg/dL (8.7-10.4)
[2025-05-28 09:54] LABS: Glucose 86 mg/dL (74-106)
[2025-05-28 09:55] LABS: BUN/Creatinine Ratio 6.8 (10.0-20.0)
[2025-05-28 09:56] LABS: Blood Urea Nitrogen 8 mg/dL (9-23); Chloride 109 mmol/L (98-107)
[2025-05-28 10:49] LABS: Urine Protein, UAD Negative (Negative)
--- NOTE | 2025-05-28 11:20 | DVH ---
INDICATION: acute kidney injury TECHNIQUE: Multiple real-time sonographic images of the kidneys and bladder were obtained. COMPARISON: None FINDINGS: RIGHT kidney measures 12.7 cm in length. No hydronephrosis. LEFT kidney measures 10.7 cm in length. No hydronephrosis. No large intraluminal masses are seen in the bladder. Prevoid bladder volume 295 mL. Post void residual not given IMPRESSION: 1. 12.7 cm long right kidney; 10.7 cm long left kidney. 2. No hydronephrosis 3. 295 mL prevoid bladder volume. No postvoid bladder volume given.
--- NOTE | 2025-05-28 11:45 | DVH ---
EXAM: MRI BRAIN HEAD WO CONTRAST HISTORY: Seizure TECHNIQUE: ADC images were obtained in the brain. COMPARISON: MRI BRAIN HEAD WO CONTRAST on DOS: 05/26/25 Findings/impression: No water restriction is present
[2025-05-28 13:00] VITALS: BP 122/72; PULSE 63; RESP 18; TEMP 98; O2SAT 100
[2025-05-28] MEDS ORDERED: KEP500T PO (13:25)
[2025-05-28 14:03] VITALS: BP 122/72; PULSE 63; RESP 18; TEMP 98; O2SAT 100
== END 2025-05-28 14:40 | disposition home or self-care (01) | DRG 53 ==
LOC: EDUNIT# 14:10 → EDBD 14:10 → ER 14:10 → OVERFLOW 17:53 → CENTRAL 05-26 02:18
PROVIDERS: ADMIT Internal Medicine; ATTEND Internal Medicine
DX: G40.409 Other generalized epilepsy and epileptic syndromes, not intractable, without status epilepticus (principal); S09.90XA Unspecified injury of head, initial encounter; F32.A Depression, unspecified; N18.32 Chronic kidney disease, stage 3b; D72.829 Elevated white blood cell count, unspecified; F17.200 Nicotine dependence, unspecified, uncomplicated; X58.XXXA Exposure to other specified factors, initial encounter; Y93.89 Activity, other specified; Y92.89 Other specified places as the place of occurrence of the external cause; Y99.8 Other external cause status; Z87.820 Personal history of traumatic brain injury
CPT/HCPCS: 36415; 70450; 70551; 76775; 80048; 80307; 80320; 81001; 81015; 82542; 85007; 85025; 85027; 87081; 96365; 96375; 99291; G0378; J2405

== ENCOUNTER 2025-05-28 22:30 | Emergency (ER) | payer MEDICAID ==
[~2025-05-28] VITALS: Ht 188 cm; Wt 88.4 kg
[~2025-05-28 22:30] MED LIST changes: +KEP500T PO
[2025-05-28 22:33] VITALS: O2SAT 97
--- NOTE | 2025-05-29 00:40 | ED.PDOC ---
History of Present Illness HPI Comments 30-year-old male presents for medication dosing inquiry. Patient reports on being discharged from hospital admission for breakthrough seizures, earlier, today after running out of his Keppra medication, recently. He comments on returning to the ED for an emergency dose of his medication following discharge after failing to claim his refill prescription from his pharmacy before closing hours. Patient is asymptomatic at this time. REVIEW OF SYSTEMS: General: No fever, no chills, HEENT: No neck pain, no blurred vision Cardiac: No chest pain. No palpitations. Lungs: No shortness of breath, GI: No abdominal pain, no vomiting Musculoskeletal: No joint pain , no back pain Skin: No rash, no wound Neuro: No headache, no dizziness, no syncope PHYSICAL EXAM: General: Awake, alert and oriented. No acute distress. Skin: Skin in warm, dry and intact without rashes or lesions. HEENT: The head is normocephalic and atraumatic. Conjunctivae are clear without exudates or hemorrhage. Sclera is non-icteric. Neck: Normal range of motion. No JVD. Cardiac: Regular rate Respiratory: No signs of respiratory distress. No Stridor. Extremities: Upper and lower extremities are atraumatic in appearance without deformity. Neurological: The patient is awake, alert and oriented to person, place, and time with normal speech. Speech is clear. There is no facial asymmetry. Psychiatric: Appropriate mood and affect. Good judgement and insight. Chief Complaint: Seizure Time Seen by MD: 23:56 Primary Care Provider: FANI Dobbins Notes: Nurses Notes, Medications, Allergies Allergies: Coded Allergies: NO KNOWN ALLERGIES (Unverified , 05/14/24) Home Meds Active Scripts Levetiracetam (KEPPRA TABLET) 500 Mg Tb, 1000 MG PO BID for 30 Days, #60 TAB Prov:GABBI EPPERSON MD 05/28/25 Levetiracetam (Keppra Xr) 500 Mg Tab, 2 TAB PO BID, #60 TAB 0 Refills Prov:CLEMENT SAENZ 05/03/25 Quetiapine Fumerate (QUETIAPINE FUMARATE) 50 Mg Tab, 50 MG PO DAILY for 30 Days, #30 TAB Prov:SHIRA CHUNG 05/17/24 Fluoxetine HCl (Pmdd) (Fluoxetine HCl) 20 Mg Tab, 20 MG PO DAILY for 30 Days, #30 TAB Prov:SHIRA CHUNG RESIDENT 05/17/24 Reported Medications Levetiracetam (Levetiracetam) 500 Mg Tab, 1.5 TAB PO BID 05/14/24 Information Source: Patient Mode of Arrival: Ambulatory Severity: Moderate Timing: Hours Duration: Since onset Prehospital treatment: None Past Medical History PAST MEDICAL HISTORY: Depression, Seizures Surgical History: Denies all surgeries Family History Family History: Unknown Social History Smoker: Non-Smoker Alcohol: Occasionally Drugs: Marijuana Lives In: Home Was a procedure done? Was a procedure done?: No Differential Dx Considerations may include: Medication emergency dose X-Ray, Labs, Meds, VS Vital Signs Date Time Temp Pulse Resp B/P (MAP) Pulse Ox O2 Delivery O2 Flow Rate FiO2 05/29/25 01:35 78 05/29/25 01:35 98.7 78 18 129/79 (96) 98.7 05/28/25 22:33 99.7 99 16 121/69 97 99.7 Current Medications Medications (Trade) Dose Ordered Sig/Annamaria Route Start Time Stop Time Status Last Admin Levetiracetam (Keppra Tablet) 500 mg ONCE ONCE PO 05/29/25 00:45 05/29/25 00:46 DC 05/29/25 01:33 Time of 1ST Reevaluation: 00:37 Reevaluation 1ST: Unchanged Patient Education/Counseling: Need For Follow Up Family Education/Counseling: No Family Present SEPSIS Sepsis Screen Date sepsis recognized/suspect: May 28, 2025 Time Sepsis recognized/suspect: 2234 Recent Procedure: No On Antibiotic Therapy: No Respiratory Rate >20: No Heart Rate >90: No Temp<36 C (96.8 F) or >38.3 C: No SBP <90 or MAP <65 mmHG: No New Acute Mental Status Change: No Is the patient on CPAP, BIPAP,: Yes Vital Signs Date Time Temp Pulse Resp B/P (MAP) Pulse Ox O2 Delivery O2 Flow Rate FiO2 05/29/25 01:35 78 05/29/25 01:35 98.7 78 18 129/79 (96) 98.7 05/28/25 22:33 99.7 99 16 121/69 97 99.7 Departure 1 Departure Time of Disposition: 00:38 Impression: Primary Impression: Seizure disorder Disposition: HOME / SELF CARE / HOMELESS Condition: Stable Additional Instructions: ED DISCHARGE INSTRUCTIONS Instructions: Please read all instructions provided in this packet carefully. Be sure to take your medications as prescribed. Although you have been discharged from the Emergency Department, this does not mean that you have a "clean bill of health". No definitive diagnosis for your symptoms has been made today. It is possible that you are in the process of developing a serious illness. This is why you must return to the ED without fail if any new or worsening symptoms (especially if your symptoms include chest pain, trouble breathing, abdominal pain, fever, headache, confusion, trouble seeing, or trouble walking) It is also very important that you see a primary care provider (PCP) within the next 3-5 days to follow up. If you are unable to get an appointment, return to the ED for re-evaluation. Comments MDM: Dose of Keppra administered in the ED Patient felt stable for discharge home to follow up with the primary care provider He will flower buncher or picker prescription in the morning Extensive evaluation was performed in attempt to identify or rule out: (See differential diagnosis section) The following tests were ordered, and results were reviewed by me and discussed with patient: (See diagnostic results section) The following test were independently interpreted by me: N/A I reviewed and agreed with the following test results read by other providers: N/A I reviewed the following notes from the pt's past medical encounters: May 25, 2025 encounter for breakthrough seizure Decision regarding hospitalization or escalation of hospital level of care: Risks and benefits of admission for further treatment of patient's condition was considered however due to patient's stable condition patient will be discharged to follow up closely or return to care for worsening of condition or inability to follow up. Critical Care Note Critical Care Time?: No Stability Stability form required: No Heart Score Heart Score: Heart Score Response (Comments) Value History N/A 0 EKG N/A 0 Age N/A 0 Risk Factors N/A 0 Troponin N/A 0 Total 0 I personally scribed for MARIANNA ALONSO MD ([email or web address]) on 05/29/25 at 00:47. Electronically submitted by Jd Torres ([email or web address]). MARIANNA ALONSO MD May 29, 2025 00:40
[2025-05-29] MEDS: levETIRAcetam 500 MG TAB PO ONE (01:33)
[2025-05-29 01:35] VITALS: BP 129/79; PULSE 78; RESP 18; TEMP 98.7
== END 2025-05-29 01:40 | disposition home or self-care (01) ==
LOC: ER 22:30
DX: G40.909 Epilepsy, unspecified, not intractable, without status epilepticus (principal); Z79.899 Other long term (current) drug therapy

== ENCOUNTER 2025-06-25 22:54 | Emergency (ER) | payer MEDICAID ==
[~2025-06-25] VITALS: Ht 188 cm; Wt 92.6 kg
--- NOTE | 2025-06-25 23:51 | ED.PDOC ---
History of Present Illness HPI Comments 22-year-old male presents to the ED reports history of epilepsy requesting medication refill. Patient states currently on Keppra 1000 mg twice daily last dose was Thursday denies any seizure activity at this time. Reports some side effects from medication Chief Complaint: Seizure Time Seen by MD: 23:08 Primary Care Provider: FANI Reviewed Notes: Nurses Notes, Medications, Allergies Allergies: Coded Allergies: NO KNOWN ALLERGIES (Unverified , 05/14/24) Home Meds Active Scripts Levetiracetam (KEPPRA TABLET) 500 Mg Tb, 1000 MG PO BID for 30 Days, #60 TAB Prov:CLOT GABRIEL 06/25/25 Levetiracetam (Keppra Xr) 500 Mg Tab, 2 TAB PO BID, #60 TAB 0 Refills Prov:CLEMENT SAENZ 05/03/25 Quetiapine Fumerate (QUETIAPINE FUMARATE) 50 Mg Tab, 50 MG PO DAILY for 30 Days, #30 TAB Prov:SHIRA CHUNG RESIDENT 05/17/24 Fluoxetine HCl (Pmdd) (Fluoxetine HCl) 20 Mg Tab, 20 MG PO DAILY for 30 Days, #30 TAB Prov:SHIRA CHUNG RESIDENT 05/17/24 Reported Medications Levetiracetam (Levetiracetam) 500 Mg Tab, 1.5 TAB PO BID 05/14/24 Mode of Arrival: Ambulatory Past Medical History PAST MEDICAL HISTORY: Depression, Seizures Surgical History: Denies all surgeries Family History Family History: Unknown Social History Smoker: Non-Smoker Alcohol: Occasionally Drugs: Marijuana Lives In: Home All Other Systems: Reviewed and Negative (See HPI) Physical Exam General Appearance: No Apparent Distress, Normal HEENT: Pharynx Normal Neck: Full Range of Motion, Non-Tender Respiratory: Lungs Clear, No Respiratory Distress, Normal Breath Sounds Cardiovascular: No Edema, No JVD, No Murmur, No Gallop, Normal Peripheral Pulses, Regular Rate/Rhythm Breast Exam: Deferred Gastrointestinal: Non Tender, Soft Genitalia: Deferred Pelvic: Deferred Rectal: Deferred Extremities: Normal capillary refill, Non-tender, No pedal edema Musculoskeletal : Apperance: Normal Neurologic: Alert, No Motor Deficits, Normal Affect, Normal Mood, No Sensory Deficits Cerebellar Function: Normal Reflexes: Normal Skin: Dry, Normal Color, Warm Lymphatic: No Adenopathy Was a procedure done? Was a procedure done?: No Differential Dx Considerations may include: Epilepsy, seizures, noncompliance of medications X-Ray, Labs, Meds, VS Vital Signs Date Time Temp Pulse Resp B/P (MAP) Pulse Ox O2 Delivery O2 Flow Rate FiO2 06/26/25 00:20 98.5 84 16 108/74 (85) 98 98.5 06/26/25 00:20 16 98 Room Air 06/25/25 23:04 98.7 99 16 123/85 97 98.7 Current Medications Medications (Trade) Dose Ordered Sig/Annamaria Route Start Time Stop Time Status Last Admin Levetiracetam (Keppra Tablet) 500 mg ONCE ONCE PO 06/26/25 00:00 06/26/25 00:01 DC 06/26/25 00:20 X-Ray, Labs, Meds, VS Comment Medication script to patient's pharmacy on file. Advised him to follow up with his PCP for further refills. ER return precautions given patient indicates understanding agrees with discharge plan of care Time of 1ST Reevaluation: 23:08 Reevaluation 1ST: Unchanged Time of 2ND Reevaluation: 23:53 Reevaluation 2ND: Improved Patient Education/Counseling: Diagnosis, Treatment, Need For Follow Up Family Education/Counseling: No Family Present SEPSIS Sepsis Screen Date sepsis recognized/suspect: Jun 25, 2025 Time Sepsis recognized/suspect: 2306 Recent Procedure: No On Antibiotic Therapy: No Respiratory Rate >20: No Heart Rate >90: No Temp<36 C (96.8 F) or >38.3 C: No SBP <90 or MAP <65 mmHG: No New Acute Mental Status Change: No Is the patient on CPAP, BIPAP,: No Vital Signs Date Time Temp Pulse Resp B/P (MAP) Pulse Ox O2 Delivery O2 Flow Rate FiO2 06/26/25 00:20 98.5 84 16 108/74 (85) 98 98.5 06/26/25 00:20 16 98 Room Air 06/25/25 23:04 98.7 99 16 123/85 97 98.7 Medications Medications Dose Ordered Sig/Annamaria Route Start Time Stop Time Status Last Admin Dose Admin Levetiracetam 500 mg ONCE ONCE PO 06/26/25 00:00 06/26/25 00:01 DC 06/26/25 00:20 Departure 1 Departure Time of Disposition: 23:49 Impression: Primary Impression: Encounter for medication refill Disposition: HOME / SELF CARE / HOMELESS Condition: Stable e-Prescriptions Levetiracetam (KEPPRA TABLET) 500 Mg Tb 1000 MG PO BID for 30 Days, #60 TAB Prov: COLT GABRIEL 06/25/25 Discharged With: Self Critical Care Note Critical Care Time?: No Stability Stability form required: No COLT GABRIEL Jun 25, 2025 23:51
[2025-06-25] MEDS ORDERED: KEP500T PO (23:55)
[2025-06-26 00:20] VITALS: BP 108/74; PULSE 84; RESP 16; TEMP 98.5; O2SAT 98
[2025-06-26] MEDS: levETIRAcetam 500 MG TAB PO ONE (00:20)
== END 2025-06-26 00:25 | disposition home or self-care (01) ==
LOC: ER 22:54
DX: G40.909 Epilepsy, unspecified, not intractable, without status epilepticus (principal); Z76.0 Encounter for issue of repeat prescription; F32.A Depression, unspecified; Z79.899 Other long term (current) drug therapy